=== PATIENT | male | born 1960 | race Caucasian/White ===

== ENCOUNTER 2023-09-29 15:11 | Outpatient (AMB) | payer BC, SELFPAY ==
[2023-09-29 15:12] VITALS: BP 162/98; PULSE 90; O2SAT 95; BMI 36.3
--- NOTE | 2023-09-29 15:12 | MHC.PC.OV ---
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 He reports he does not have any significant past medical history though has been having some trouble with his blood pressure. Today in office blood pressure is elevated. He does report a dentist visits his blood pressure has been noted to be elevated. He otherwise is asymptomatic without any vision issues, headaches, chest discomfort ect.. 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 1. Little interest or pleasure in doing things: not at all 2. Feeling down, depressed, or hopeless: not at all 3. Trouble falling or staying asleep, or sleeping too much: not at all 4. Feeling tired or having little energy: not at all 5. Poor appetite or overeating: not at all 6. Feeling bad about yourself - or that you are a failure or have let yourself or your family down: not at all 7. Trouble concentrating on things, such as reading the newspaper or watching television: not at all 8. Moving or speaking so slowly that other people could have noticed. Or the opposite - being so fidgety or restless that you have been moving around a lot more than usual: not at all 9. Thoughts that you would be better off or of hurting yourself in some way: not at all Total score: 0 Depression Screening Interpretation: Negative Depression Screening Done: Yes 23140 - PHQ-9 Billing: Yes Source: Developed by Drs. Con Shearer, Haley Ortiz, Ciro Manzo and colleagues, with an educational татьяна from [employer]. Thrive Questionnaire Date Thrive assessed: 09/29/23 I am a: Patient What is your living situation today?: I have a steady place to live Within the past 12 months, did the food you bought not last and you didn't have the money to get more?: Never true Within the past 12 months, did you worry whether your food would run out before you got money to buy more?: Never true Do you have trouble paying for medicines?: No Do you have trouble getting transportation to medical appointments?: No Do you have trouble paying your heating and electricity bill?: No Do you have trouble taking care of your child, family member or friend?: No Do you have trouble with day-to-day activities such as bathing, preparing meals, shopping, managing finances, etc.?: No Are you currently unemployed and looking for a job?: No Are you interested in more education?: No Please select the resources that you would like help with: None Currently or been in a relationship where the following occur: no concerns reported THRIVE Score: 0 AUDIT C Alcohol Use Questionnaire (AUDIT-C) 1. How often do you have a drink containing alcohol?: 2-4 times a month 2. How many drinks containing alcohol do you have on a typical day when you are drinking?: 1 or 2 3. How often do you have six or more drinks on one occasion?: Never Total Score: 2 RUTH ANN-7 AMB Questionnaire RUTH ANN-7 Date RUTH ANN - 7 assessed: 09/29/23 Feeling nervous, anxious, or on edge: 0 = Not at all Not being able to stop or control worryin = Not at all Worrying too much about different things: 0 = Not at all Trouble relaxin = Not at all Being so restless that it is hard to sit still: 0 = Not at all Becoming easily annoyed or irritable: 0 = Not at all Feeling afraid as if something awful might happen: 0 = Not at all Total RUTH ANN-7 score (0-4 normal; 5-9 mild; 10-14 moderate; 15-21 severe): 0 Source: Developed by Drs. Con Shearer, Haley Ortiz, Ciro Manzo and colleagues, with an educational татьяна from [employer]. RUTH ANN-7 Assessment Billing RUTH ANN-7 Assessment Tool: RUTH ANN-7 Assessment 98082 Review of Systems Const Denies headache(s) Eyes Denies loss of vision ENT Denies vertigo, Denies dizziness, Denies headache(s) and Denies sore throat Card Denies chest pain, Denies leg edema and Denies lightheadedness Resp Denies cough, Denies hemoptysis and Denies wheezing GI Denies abdominal pain, Denies melena, Denies constipation, Denies diarrhea and Denies vomiting Denies dysuria, Denies urinary frequency and Denies urinary urgency Musc Denies arthralgias, Denies joint swelling, Denies numbness and Denies tingling Neuro Denies Abnormal speech present, Denies behavioral changes, Denies vertigo, Denies dizziness, Denies headache(s), Denies loss of vision, Denies memory loss, Denies numbness and Denies tingling Psych Denies anxiety, Denies behavioral changes, Denies depression, Denies memory loss and Denies panic attacks Everett/Lymph Denies easy bleeding and Denies easy bruising Aller/Immun Denies wheezing Physical exam (Primary Care) Vital Signs: Last Vital Signs Pulse 90 09/29/23 15:12 BP 162/98 H 09/29/23 15:12 Pulse Ox 95 09/29/23 15:12 Oxygen Delivery Method Room Air 09/29/23 15:12 BMI result Body Mass Index 36.3 Tobacco/Smoking Status: Tobacco use Status Tobacco use date assessed 09/29/23 09/29/23 15:19 Patient Tobacco Use Status Never used Tobacco 09/29/23 15:28 PHQ-9: PHQ-9 Score PHQ-9: Total score 0 09/29/23 15:31 Depression Screening Interpretation: Negative Thrive Assessment: Date of Thrive Assessment Date Thrive assessed 09/29/23 09/29/23 15:19 Currently or been in a relationship where the following occur: no concerns reported Const General: healthy appearing, no acute distress, alert and awake Nutritional Appearance: well nourished Orientation/consciousness: oriented to person, oriented to place and oriented to time HENMT Ears: TM's normal bilaterally General nose exam: Normal nasal mucous membranes and turbinates present Eyes Conjunctivae: conjunctivae normal Sclerae: sclerae normal Pupils: Equal, round and reactive pupils present Neck Neck: Yes no lymphadenopathy and Yes no JVD Thyroid: Thyroid normal Carotids: no bruits Resp Effort & Inspection: normal respiratory effort and not tachypneic Auscultation: no crackles, no rales, no rhonchi and no wheezes Cardio Rate: regular rate Rhythm: regular rhythm Heart sounds: no murmurs and normal S1 and S2 GI Palpation (GI): Soft to palpation, nontender, no hepatomegaly and no splenomegaly Auscultation: normal bowel sounds Skin General skin exam: no rashes or lesions noted and dry skin Neuro General: oriented to person, oriented to place and oriented to time Cranial nerves: Yes Equal, round and reactive pupils present Speech: No Abnormal speech present Gait exam (Neuro): Normal gait present Motor exam (neuro): no tremor noted Extrem Right upper extremity: full ROM Left upper extremity: full ROM Right lower extremity: full ROM; no edema Left lower extremity: full ROM; no edema Psych Mental Status: mental status grossly normal Speech and movement: Normal speech and movement present Affect: normal affect Attitude: cooperative Thought process: Normal thought process present Assessment and Plan Assessment & Plan (1) Elevated blood pressure reading: Code(s): R03.0 - Elevated blood-pressure reading, without diagnosis of hypertension Plan: Noted elevated blood pressure reading today in office. Has been elevated at dentist appointments. Will commence blood pressure monitoring over the next 3-4 weeks. If consistently above 140/90 will consider starting lisinopril (2) Borderline high cholesterol: Code(s): E78.9 - Disorder of lipoprotein metabolism, unspecified Plan: Will check a fasting lipid panel (3) Screening for diabetes mellitus (DM): Code(s): Z13.1 - Encounter for screening for diabetes mellitus (4) Colon cancer screening: Code(s): Z12.11 - Encounter for screening for malignant neoplasm of colon Plan: Willing to do colonoscopy Orders: Orders Lipid Panel 09/29/23 E78.9 - Disorder of lipoprotein metabolism, unspecified Prostate Specific Antigen Scr 09/29/23 Z12.5 - Encounter for screening for malignant neoplasm of prostate Comprehensive [place]. Panel Fast 09/29/23 Z13.1 - Encounter for screening for diabetes mellitus Complete Blood Count no Diff 09/29/23 R03.0 - Elevated blood-pressure reading, without diagnosis of hypertension Referrals Gastroenterology Referral Z12.11 - Encounter for screening for malignant neoplasm of colon Coding Level of Care Code New Pt Level 4 (03304) Diagnoses Elevated blood pressure reading R03.0 Borderline high cholesterol E78.9 Screening for diabetes mellitus (DM) Z13.1 Colon cancer screening Z12.11 Additional Codes RUTH ANN-7 Assessment Billing - RUTH ANN-7 Assessment Tool: RUTH ANN-7 Assessment [id number] ([id number])
== END 2023-09-29 15:43 | disposition home or self-care (01) ==
PROVIDERS: Visit Provider Physician Assistant
DX: R03.0 Elevated blood-pressure reading, without diagnosis of hypertension (principal); E78.9 Disorder of lipoprotein metabolism, unspecified
CPT/HCPCS: 99204

== ENCOUNTER 2023-10-05 06:11 | Outpatient (REF) | payer BC, SELFPAY ==
[2023-10-05 07:50] LABS: Hematocrit 43.3 % (42.0-52.0); Hemoglobin 15.2 g/dl (14.0-18.0); Mean Corpuscular HGB Conc 35.1 g/dl (31.0-36.0); Mean Corpuscular Hemoglobin 31.3 pg (27.0-33.0); Mean Corpuscular Volume 89.1 fL (80.0-98.0); Mean Platelet Volume 10.8 fL (9.4-12.4); Platelet Count 184 X10*3/uL (160-400); Red Blood Count 4.86 X10*6/uL (4.60-5.80); Red Cell Distribution Width 12.5 % (11.0-16.0); White Blood Count 5.5 X10*3/uL (4.8-10.8)
[2023-10-05 08:16] LABS: Alanine Aminotransferase 44 U/L (0-40); Albumin Level 4.3 g/dL (3.5-5.0); Alkaline Phosphatase 70 U/L (39-117); Anion Gap 11 (12-20); Aspartate Amino Transferase 28 U/L (5-37); Bilirubin Total 0.5 mg/dL (0.0-1.0); Blood Urea Nitrogen 21 mg/dL (9-16); Calcium 9.7 mg/dL (8.4-10.2); Carbon Dioxide 28 mmol/L (22-29); Chloride 107 mmol/L (96-108); Cholesterol 198 mg/dL (<200); Estimated Glomerular Filt Rate > 60; Glucose Fasting 103 mg/dL (60-99); HDL Cholesterol 44 mg/dL (>40); LDL Cholesterol Calculated 113 mg/dL (<100); Potassium 4.5 mmol/L (3.3-5.1); Sodium 141 mmol/L (135-145); Total Protein 7.2 g/dL (6.5-8.0); Triglycerides 207 mg/dL (<150)
[2023-10-05 08:26] LABS: Prostate Specific Antigen Scr 0.96 ng/mL (<0.05-4.0)
== END 2023-10-05 06:12 | disposition home or self-care (01) ==
LOC: HO.LAB 06:11
PROVIDERS: PCP Physician Assistant; Visit Provider Physician Assistant
DX: R03.0 Elevated blood-pressure reading, without diagnosis of hypertension (principal); E78.9 Disorder of lipoprotein metabolism, unspecified; Z12.5 Encounter for screening for malignant neoplasm of prostate; Z13.1 Encounter for screening for diabetes mellitus
CPT/HCPCS: 36415; 80053; 80061; 84153; 85027

== ENCOUNTER 2023-11-02 09:36 | Outpatient (AMB) | payer BC, SELFPAY ==
[2023-11-02 09:49] VITALS: BP 160/96; PULSE 80; O2SAT 96; BMI 35.7
--- NOTE | 2023-11-02 09:49 | MHC.PC.OV ---
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 At last visit we noticed his elevated blood pressure was advised to do home blood pressure monitoring and work on weight reduction low-sodium diet. Unfortunately blood pressure remains elevated today in office. He is asymptomatic. He has been taking home readings which do appears somewhat elevated 140s to 150 systolic. Has been trying to be more physically active and following a low-sodium diet. Does have a family history of high blood pressure. 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 Con Shearer, Haley Ortiz, Ciro Manzo and colleagues, with an educational татьяна from [employer] Review of Systems Const Denies headache(s) Eyes Denies loss of vision ENT Denies vertigo, Denies dizziness, Denies headache(s) and Denies sore throat Card Denies chest pain, Denies leg edema and Denies lightheadedness Resp Denies cough, Denies hemoptysis and Denies wheezing GI Denies abdominal pain, Denies melena, Denies constipation, Denies diarrhea and Denies vomiting Denies dysuria, Denies urinary frequency and Denies urinary urgency Musc Denies arthralgias, Denies joint swelling, Denies numbness and Denies tingling Neuro Denies Abnormal speech present, Denies behavioral changes, Denies vertigo, Denies dizziness, Denies headache(s), Denies loss of vision, Denies memory loss, Denies numbness and Denies tingling Psych Denies anxiety, Denies behavioral changes, Denies depression, Denies memory loss and Denies panic attacks Everett/Lymph Denies easy bleeding and Denies easy bruising Aller/Immun Denies wheezing Physical exam (Primary Care) Vital Signs: Last Vital Signs Pulse 80 11/02/23 09:49 BP 160/96 H 11/02/23 09:49 Pulse Ox 96 11/02/23 09:49 Oxygen Delivery Method Room Air 11/02/23 09:49 BMI result Body Mass Index 35.7 Tobacco/Smoking Status: Tobacco use Status Tobacco use date assessed 09/29/23 11/02/23 09:49 Patient Tobacco Use Status Never used Tobacco 11/02/23 09:49 e-Cigarette/Vaping Use Never Used 11/02/23 09:57 Thrive Assessment: Date of Thrive Assessment Date Thrive assessed 09/29/23 11/02/23 09:49 Const General: healthy appearing, no acute distress, alert and awake Nutritional Appearance: well nourished Orientation/consciousness: oriented to person, oriented to place and oriented to time HENMT Ears: TM's normal bilaterally General nose exam: Normal nasal mucous membranes and turbinates present Eyes Conjunctivae: conjunctivae normal Sclerae: sclerae normal Pupils: Equal, round and reactive pupils present Neck Neck: Yes no lymphadenopathy and Yes no JVD Thyroid: Thyroid normal Carotids: no bruits Resp Effort & Inspection: normal respiratory effort and not tachypneic Auscultation: no crackles, no rales, no rhonchi and no wheezes Cardio Rate: regular rate Rhythm: regular rhythm Heart sounds: no murmurs and normal S1 and S2 GI Palpation (GI): Soft to palpation, nontender, no hepatomegaly and no splenomegaly Auscultation: normal bowel sounds Skin General skin exam: no rashes or lesions noted and dry skin Neuro General: oriented to person, oriented to place and oriented to time Cranial nerves: Yes Equal, round and reactive pupils present Speech: No Abnormal speech present Gait exam (Neuro): Normal gait present Motor exam (neuro): no tremor noted Extrem Right upper extremity: full ROM Left upper extremity: full ROM Right lower extremity: full ROM; no edema Left lower extremity: full ROM; no edema Psych Mental Status: mental status grossly normal Speech and movement: Normal speech and movement present Affect: normal affect Attitude: cooperative Thought process: Normal thought process present Assessment and Plan Assessment & Plan (1) HTN (hypertension): Code(s): I10 - Essential (primary) hypertension Qualifiers: Hypertension type: primary hypertension Qualified Code(s): I10 - Essential (primary) hypertension Plan: Patient's blood pressure still remains elevated. Home blood pressure readings also elevated. Patient willing to start low-dose lisinopril and continue monitoring blood pressure at home. Fortunately he is asymptomatic without any chest discomfort, dizziness or syncopal episodes. Goal blood pressures to be below 140/90 (2) Hypertriglyceridemia: Code(s): E78.1 - Pure hyperglyceridemia Plan: Patient's most recent lipid panel showing slightly elevated triglycerides. He will implement dietary modifications. (3) Impaired glucose regulation: Code(s): R73.09 - Other abnormal glucose Plan: Most recent fasting blood sugar slightly elevated at 103. Will continue lifestyle and dietary modifications Orders: Orders Comprehensive Met. Panel 11/02/23 I10 - Essential (primary) hypertension Medications: New lisinopril 5 mg PO DAILY 30 tabs 1RF 30 days I10 - Essential (primary) hypertension Coding Level of Care Code Est Pt Level 4 (07279) Diagnoses Primary hypertension I10 Hypertension type: primary hypertension Hypertriglyceridemia E78.1 Impaired glucose regulation R73.09
== END 2023-11-02 10:22 | disposition home or self-care (01) ==
PROVIDERS: Visit Provider Physician Assistant
DX: I10 Essential (primary) hypertension (principal); E78.1 Pure hyperglyceridemia; R73.09 Other abnormal glucose
CPT/HCPCS: 99214

== ENCOUNTER 2023-12-07 06:03 | Outpatient (REF) | payer BC, SELFPAY ==
[2023-12-07 07:44] LABS: Alanine Aminotransferase 38 U/L (0-40); Albumin Level 4.3 g/dL (3.5-5.0); Alkaline Phosphatase 71 U/L (39-117); Anion Gap 12 (12-20); Aspartate Amino Transferase 26 U/L (5-37); Bilirubin Total 0.5 mg/dL (0.0-1.0); Blood Urea Nitrogen 20 mg/dL (9-16); Carbon Dioxide 28 mmol/L (22-29); Chloride 106 mmol/L (96-108); Estimated Glomerular Filt Rate > 60; Glucose Random 112 mg/dL (60-115); Potassium 4.5 mmol/L (3.3-5.1); Sodium 141 mmol/L (135-145); Total Protein 7.3 g/dL (6.5-8.0)
== END 2023-12-07 06:04 | disposition home or self-care (01) ==
LOC: HO.LAB 06:03
PROVIDERS: PCP Physician Assistant; Visit Provider Physician Assistant
DX: I10 Essential (primary) hypertension (principal)
CPT/HCPCS: 36415; 80053

== ENCOUNTER 2023-12-08 09:50 | Outpatient (AMB) | payer BC, SELFPAY ==
[2023-12-08 09:57] VITALS: BP 164/80; PULSE 88; O2SAT 98; BMI 36.5
--- NOTE | 2023-12-08 09:57 | MHC.PC.OV ---
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 Today we are discussing his high blood pressure. WE DID START LISINOPRIL which caused patient side effect of frequent still in diarrhea that was intolerable. Transitioned to amlodipine 5 mg reports he has been feeling well. Unfortunately blood pressure remains elevated today in office. He is asymptomatic. He has been taking home readings which do appears somewhat elevated 140s to 150 systolic at home. Has been trying to be more physically active and following a low-sodium diet. Does have a family history of high blood pressure. 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 Con Shearer, Haley Ortiz, Ciro Manzo and colleagues, with an educational татьяна from [employer]. Review of Systems Const Denies headache(s) Eyes Denies loss of vision ENT Denies vertigo, Denies dizziness, Denies headache(s) and Denies sore throat Card Denies chest pain, Denies leg edema and Denies lightheadedness Resp Denies cough, Denies hemoptysis and Denies wheezing GI Denies abdominal pain, Denies melena, Denies constipation, Denies diarrhea and Denies vomiting Denies dysuria, Denies urinary frequency and Denies urinary urgency Musc Denies arthralgias, Denies joint swelling, Denies numbness and Denies tingling Neuro Denies Abnormal speech present, Denies behavioral changes, Denies vertigo, Denies dizziness, Denies headache(s), Denies loss of vision, Denies memory loss, Denies numbness and Denies tingling Psych Denies anxiety, Denies behavioral changes, Denies depression, Denies memory loss and Denies panic attacks Everett/Lymph Denies easy bleeding and Denies easy bruising Aller/Immun Denies wheezing Physical exam (Primary Care) Vital Signs: Last Vital Signs Pulse 88 12/08/23 09:57 BP 142/70 H 12/08/23 10:13 Pulse Ox 98 12/08/23 09:57 Oxygen Delivery Method Room Air 12/08/23 09:57 BMI result Body Mass Index 36.5 Tobacco/Smoking Status: Tobacco use Status Tobacco use date assessed 09/29/23 12/08/23 09:59 Patient Tobacco Use Status Never used Tobacco 12/08/23 09:59 e-Cigarette/Vaping Use Never Used 12/08/23 09:59 Thrive Assessment: Date of Thrive Assessment Date Thrive assessed 09/29/23 12/08/23 09:59 Const General: healthy appearing, no acute distress, alert and awake Nutritional Appearance: well nourished Orientation/consciousness: oriented to person, oriented to place and oriented to time HENMT Ears: TM's normal bilaterally General nose exam: Normal nasal mucous membranes and turbinates present Eyes Conjunctivae: conjunctivae normal Sclerae: sclerae normal Pupils: Equal, round and reactive pupils present Neck Neck: Yes no lymphadenopathy and Yes no JVD Thyroid: Thyroid normal Carotids: no bruits Resp Effort & Inspection: normal respiratory effort and not tachypneic Auscultation: no crackles, no rales, no rhonchi and no wheezes Cardio Rate: regular rate Rhythm: regular rhythm Heart sounds: no murmurs and normal S1 and S2 GI Palpation (GI): Soft to palpation, nontender, no hepatomegaly and no splenomegaly Auscultation: normal bowel sounds Skin General skin exam: no rashes or lesions noted and dry skin Neuro General: oriented to person, oriented to place and oriented to time Cranial nerves: Yes Equal, round and reactive pupils present Speech: No Abnormal speech present Gait exam (Neuro): Normal gait present Motor exam (neuro): no tremor noted Extrem Right upper extremity: full ROM Left upper extremity: full ROM Right lower extremity: full ROM; no edema Left lower extremity: full ROM; no edema Psych Mental Status: mental status grossly normal Speech and movement: Normal speech and movement present Affect: normal affect Attitude: cooperative Thought process: Normal thought process present Assessment and Plan Assessment & Plan (1) HTN (hypertension): Code(s): I10 - Essential (primary) hypertension Qualifiers: Hypertension type: primary hypertension Qualified Code(s): I10 - Essential (primary) hypertension Plan: Patient's blood pressure remains elevated even with the use of amlodipine 5 mg. Will increase his dose to 10 mg for better blood pressure control. Will consider adding on hydrochlorothiazide if blood pressure remains elevated. He is getting very high readings at home that do not seem to be believable. He will try to get a new blood pressure cuff. Fortunately patient is fairly asymptomatic denying any chest pain, shortness of breath, headaches or vision issues. Goal blood pressure is to be below 140/90 Medications: New amlodipine 10 mg PO DAILY 30 tabs 1RF 30 days I10 - Essential (primary) hypertension Discontinued amlodipine Discontinued Reason: Doctor's Order 5 mg PO DAILY 30 days 30 tabs 1RF I10 - Essential (primary) hypertension Coding Level of Care Code Est Pt Level 3 (92657) Diagnoses Primary hypertension I10 Hypertension type: primary hypertension
[2023-12-08 10:13] VITALS: BP 142/70
== END 2023-12-08 10:20 | disposition home or self-care (01) ==
PROVIDERS: PCP Physician Assistant; Visit Provider Physician Assistant
DX: I10 Essential (primary) hypertension (principal)
CPT/HCPCS: 99213

== ENCOUNTER 2024-01-17 09:23 | Outpatient (AMB) | payer BC, SELFPAY ==
--- NOTE | 2024-01-17 09:24 | A.OFFPC_ITS ---
Vital Signs 01/17/24 09:25 Height 5 ft 5.5 in Weight 224 lb BMI 36.7 BP 152/70 H Blood Pressure Location Lt brachial Position Sitting Pulse 86 Pulse Source Pulse Oximeter Pulse Oximetry (%) 97 Oxygen Delivery Method Room Air Intake Visit Reasons: 4 Week F/U Loaf Counter Required: No Accompanied by: Self / Same As Patient Allergies lisinopril Adverse Reaction (Intermediate, Verified 01/17/24 09:39) Frequent stool Medication List - Last Reconciled 01/17/24 by Levi Celeste PA-C amlodipine 10 mg PO DAILY 30 days Tobacco use date assessed: 09/29/23 Dental Screening Dental Screen Date: 01/17/24 Did you have a dental visit in the last 12 months?: Yes Did you have a dental problem in the last 6 months where you did not have access to dental care?: No Was dental information given to patient?: Patient has dentist HPI 4 Week F/U HPI Details patient is a 63-year-old male here today for 4 week follow-up visit. Today we are discussing his high blood pressure. At last visit be started amlodipine 10 mg. Unfortunately today in office blood pressure still elevated. Patient does bring in home readings which do show elevated systolic readings [id number]. Fortunately patient is asymptomatic without any headache, chest pain, dizziness ect.. Has been trying to be more physically active and following a low-sodium diet. Does have a family history of high blood pressure. 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 Con Shearer, Haley Ortiz, Ciro Manzo and colleagues, with an educational татьяна from [employer]. Review of Systems Const Denies headache(s) Eyes Denies loss of vision ENT Denies vertigo, Denies dizziness, Denies headache(s) and Denies sore throat Card Denies chest pain, Denies leg edema and Denies lightheadedness Resp Denies cough, Denies hemoptysis and Denies wheezing GI Denies abdominal pain, Denies melena, Denies constipation, Denies diarrhea and Denies vomiting Denies dysuria, Denies urinary frequency and Denies urinary urgency Musc Denies arthralgias, Denies joint swelling, Denies numbness and Denies tingling Neuro Denies Abnormal speech present, Denies behavioral changes, Denies vertigo, Denies dizziness, Denies headache(s), Denies loss of vision, Denies memory loss, Denies numbness and Denies tingling Psych Denies anxiety, Denies behavioral changes, Denies depression, Denies memory loss and Denies panic attacks [place]rett/Lymph Denies easy bleeding and Denies easy bruising Aller/Immun Denies wheezing Physical exam (Primary Care) Vital Signs: Last Vital Signs Pulse 86 01/17/24 09:25 BP 152/70 H 01/17/24 09:25 Pulse Ox 97 01/17/24 09:25 Oxygen Delivery Method Room Air 01/17/24 09:25 BMI result Body Mass Index 36.7 Tobacco/Smoking Status: Tobacco use Status Tobacco use date assessed 09/29/23 01/17/24 09:30 Patient Tobacco Use Status Never used Tobacco 01/17/24 09:30 e-Cigarette/Vaping Use Never Used 01/17/24 09:30 Thrive Assessment: Date of Thrive Assessment Date Thrive assessed 09/29/23 01/17/24 09:30 Const General: healthy appearing, no acute distress, alert and awake Nutritional Appearance: well nourished Orientation/consciousness: oriented to person, oriented to place and oriented to time HENMT Ears: TM's normal bilaterally General nose exam: Normal nasal mucous membranes and turbinates present Eyes Conjunctivae: conjunctivae normal Sclerae: sclerae normal Pupils: Equal, round and reactive pupils present Neck Neck: Yes no lymphadenopathy and Yes no JVD Thyroid: Thyroid normal Carotids: no bruits Resp Effort & Inspection: normal respiratory effort and not tachypneic Auscultation: no crackles, no rales, no rhonchi and no wheezes Cardio Rate: regular rate Rhythm: regular rhythm Heart sounds: no murmurs and normal S1 and S2 GI Palpation (GI): Soft to palpation, nontender, no hepatomegaly and no splenomegaly Auscultation: normal bowel sounds Skin General skin exam: no rashes or lesions noted and dry skin Neuro General: oriented to person, oriented to place and oriented to time Cranial nerves: Yes Equal, round and reactive pupils present Speech: No Abnormal speech present Gait exam (Neuro): Normal gait present Motor exam (neuro): no tremor noted Extrem Right upper extremity: full ROM Left upper extremity: full ROM Right lower extremity: full ROM; no edema Left lower extremity: full ROM; no edema Psych Mental Status: mental status grossly normal Speech and movement: Normal speech and movement present Affect: normal affect Attitude: cooperative Thought process: Normal thought process present Office Procedures Flu Questionnaire Does the patient have a severe egg allergy?: No Immunizations Fluarix Triv [id number] (PF) 45 mcg (15 mcg x 3)/0.5 mL IM syringe Performing Provider: Levi Celeste PA-C [place] [facility] [place] [facility] Documented (not given) by: ARRON Lopez on 01/17/24 09:31 Reason Not Given: Patient Refused Coding Level of Care Code Est Pt Level 3 (36825) Diagnoses Primary hypertension I10 Hypertension type: primary hypertension Assessment & Plan Assessment & Plan (1) HTN (hypertension): Code(s): I10 - Essential (primary) hypertension Category: Medical Qualifiers: Hypertension type: primary hypertension Qualified Code(s): I10 - Essential (primary) hypertension Plan: Patient's blood pressure still remains uncontrolled. Continues on amlodipine 10 mg without any side effect. Will add on hydrochlorothiazide 12.5 mg daily for better blood pressure control. Advised to continue monitoring blood pressure follow a low-sodium diet. Will try to work on lifestyle and dietary modifications as well. Will have patient back in 4 weeks to evaluate blood pressure readings. Goal blood pressures to be below 140/90 Orders: Orders Influenza [id number] Immunization Today Z23 - Encounter for immunization Medications: New hydrochlorothiazide 12.5 mg PO DAILY 30 days 30 tabs 1RF I10 - Essential (primary) hypertension
[2024-01-17 09:25] VITALS: BP 152/70; PULSE 86; O2SAT 97; BMI 36.7
== END 2024-01-17 09:58 | disposition home or self-care (01) ==
PROVIDERS: PCP Physician Assistant; Visit Provider Physician Assistant
DX: Z23 Encounter for immunization (principal); I10 Essential (primary) hypertension

== ENCOUNTER → 2024-01-17 09:23 | Outpatient (BNVA) | payer BC, SELFPAY | PROVIDERS: PCP Physician Assistant; Visit Provider Physician Assistant | DX: I10 Essential (primary) hypertension (principal); Z79.899 Other long term (current) drug therapy; Z28.21 Immunization not carried out because of patient refusal | CPT/HCPCS: 90471 ==

== ENCOUNTER 2024-02-16 08:44 | Outpatient (AMB) | payer BC, SELFPAY ==
[2024-02-16 08:47] VITALS: BP 150/80; PULSE 78; O2SAT 98; BMI 37.5
--- NOTE | 2024-02-16 08:47 | MHC.PC.OV ---
Vital Signs 02/16/24 08:47 Height 5 ft 5 in Weight 225 lb 8 oz BMI 37.5 BP 150/80 H Blood Pressure Location Lt brachial Position Sitting Pulse 78 Pulse Source Pulse Oximeter Pulse Oximetry (%) 98 Oxygen Delivery Method Room Air Intake Visit Reasons: f/u HTN Intake Note: Patient is here to follow up on HTN. Pt decline flu shot today. 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 Today we are discussing his high blood pressure. Patient continues on amlodipine 10 and recently started hydrochlorothiazide 12.5. Unfortunately today in office blood pressure still elevated. Patient does bring in home readings which do show elevated systolic readings 150s to 160 systolic. Fortunately patient is asymptomatic without any headache, chest pain, dizziness ect.. Has been trying to be more physically active and following a low-sodium diet. Does have a family history of high blood pressure. PLAN: Plan will be to increase his hydrochlorothiazide to 25 mg and patient will implement low-sodium diet and being more physically active to reduce his weight. If blood pressure remains 150 systolic and above will consider echocardiogram to rule out any structural heart disease. 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 Con Shearer, Haley Ortiz, Ciro Manzo and colleagues, with an educational татьяна from [employer]. Review of Systems Const Denies headache(s) Eyes Denies loss of vision ENT Denies vertigo, Denies dizziness, Denies headache(s) and Denies sore throat Card Denies chest pain, Denies leg edema and Denies lightheadedness Resp Denies cough, Denies hemoptysis and Denies wheezing GI Denies abdominal pain, Denies melena, Denies constipation, Denies diarrhea and Denies vomiting Denies dysuria, Denies urinary frequency and Denies urinary urgency Musc Denies arthralgias, Denies joint swelling, Denies numbness and Denies tingling Neuro Denies Abnormal speech present, Denies behavioral changes, Denies vertigo, Denies dizziness, Denies headache(s), Denies loss of vision, Denies memory loss, Denies numbness and Denies tingling Psych Denies anxiety, Denies behavioral changes, Denies depression, Denies memory loss and Denies panic attacks [place]rett/Lymph Denies easy bleeding and Denies easy bruising Aller/Immun Denies wheezing Physical exam (Primary Care) Vital Signs: Last Vital Signs Pulse 78 02/16/24 08:47 BP 150/80 H 02/16/24 08:47 Pulse Ox 98 02/16/24 08:47 Oxygen Delivery Method Room Air 02/16/24 08:47 BMI result Body Mass Index 37.5 Tobacco/Smoking Status: Tobacco use Status Tobacco use date assessed 02/16/24 02/16/24 08:49 Patient Tobacco Use Status Never used Tobacco 02/16/24 08:49 e-Cigarette/Vaping Use Never Used 02/16/24 08:49 Thrive Assessment: Date of Thrive Assessment Date Thrive assessed 09/29/23 02/16/24 08:49 Const General: healthy appearing, no acute distress, alert and awake Nutritional Appearance: well nourished Orientation/consciousness: oriented to person, oriented to place and oriented to time HENMT Ears: TM's normal bilaterally General nose exam: Normal nasal mucous membranes and turbinates present Eyes Conjunctivae: conjunctivae normal Sclerae: sclerae normal Pupils: Equal, round and reactive pupils present Neck Neck: Yes no lymphadenopathy and Yes no JVD Thyroid: Thyroid normal Carotids: no bruits Resp Effort & Inspection: normal respiratory effort and not tachypneic Auscultation: no crackles, no rales, no rhonchi and no wheezes Cardio Rate: regular rate Rhythm: regular rhythm Heart sounds: no murmurs and normal S1 and S2 GI Palpation (GI): Soft to palpation, nontender, no hepatomegaly and no splenomegaly Auscultation: normal bowel sounds Skin General skin exam: no rashes or lesions noted and dry skin Neuro General: oriented to person, oriented to place and oriented to time Cranial nerves: Yes Equal, round and reactive pupils present Speech: No Abnormal speech present Gait exam (Neuro): Normal gait present Motor exam (neuro): no tremor noted Extrem Right upper extremity: full ROM Left upper extremity: full ROM Right lower extremity: full ROM; no edema Left lower extremity: full ROM; no edema Psych Mental Status: mental status grossly normal Speech and movement: Normal speech and movement present Affect: normal affect Attitude: cooperative Thought process: Normal thought process present Coding Level of Care Code Est Pt Level 3 (09980) Diagnoses Primary hypertension I10 Hypertension type: primary hypertension Assessment & Plan Assessment & Plan (1) HTN (hypertension): Code(s): I10 - Essential (primary) hypertension Category: Medical Qualifiers: Hypertension type: primary hypertension Qualified Code(s): I10 - Essential (primary) hypertension Plan: Patient's blood pressure remains elevated. Has been monitoring blood pressure quite regularly at home and still gets 150s to 160 systolic. Fortunately patient is asymptomatic without any headache, blurred vision, chest discomforts or heart palpitations. For now will increase his hydrochlorothiazide to 25 mg to see if this helps his blood pressure. Will consider echocardiogram to evaluate for structural heart disease Medications: New hydrochlorothiazide 25 mg PO DAILY 30 tabs 3RF 30 days I10 - Essential (primary) hypertension Discontinued hydrochlorothiazide Discontinued Reason: Doctor's Order 12.5 mg PO DAILY 30 days 30 tabs 1RF I10 - Essential (primary) hypertension
== END 2024-02-16 09:26 | disposition home or self-care (01) ==
LOC: HO.HMCH 08:45
PROVIDERS: PCP Physician Assistant; Visit Provider Physician Assistant
DX: I10 Essential (primary) hypertension (principal)

== ENCOUNTER → 2024-02-16 08:44 | Outpatient (BNVA) | payer BC, SELFPAY | PROVIDERS: PCP Physician Assistant; Visit Provider Physician Assistant ==

== ENCOUNTER 2024-04-05 09:12 | Outpatient (AMB) | payer BC, SELFPAY ==
--- OUTSIDE RECORDS SUMMARY | 2024-04-05 09:19 | XMS_ITS | Patient Health Record ---
Author Organization [facility] Address [address] [place] [address] Care Team Providers Care Project Management Advisor Name Role Phone Tahmina Streeter Unavailable [phone] Allergies No Known Allergies Reason For Referral No Information Medications Medication SIG (Take, Route, Frequency, Duration) Notes Start Date End Date Status Ciclopirox Olamine 0.77 % 1 application Externally Twice a day for 30 days Active Amoxicillin temp Active Social History Tobacco Use: Social History Observation Description Date Details (start date - stop date) Never Smoker NA - NA Tobacco Use/Smoking Question Answer Notes Are you a: nonsmoker Additional Findings: Tobacco Non-User Current no n-smoker Alcohol Screen Question Answer Notes Did you have a drink containing alcohol in the p ast year? Yes Points 0 Interpretation Negative Tobacco use other than smoking: Question Answer Notes Are you an other tobacco user? No Vital Signs Height 5 ft 8 in in 08/08/2023 Weight 200 lbs 08/08/2023 BMI 30.41 kg/m2 08/08/2023 Encounters Encounter Location Date Provider Diagnosis [address] [address] 08/08/2023 Tahmina Streeter Tinea unguium B35.1 ; Tinea pedis of both feet B35.3 ; Pain in right toe(s) M79.674 and Pain in left toe(s) M79.675 [facility] [address] [place] [address] 06/15/2023 Tahmina Streeter Assessments Encounter Date Diagnosis (ICD Code) Assessment Notes Treatment Notes Treatment Clinical Notes Section Notes 08/08/2023 Tinea unguium (ICD-10 - B35.1) 08/08/2023 Tinea pedis of both feet (ICD-10 - B35.3) 08/08/2023 Pain in right toe(s) (ICD-10 - M79.674) 08/08/2023 Pain in left toe(s) (ICD-10 - M79.675) Plan Of Treatment No Information Insurance Providers Payer Name Payer Address Payer Phone Subscriber Number Group Number Insured Name Patient Relationship to Insured Coverage Start Date Coverage End Date [facility] Others [address] [place] [address] [phone] [id number] Bob Connell Self - patient is the insured Medical (General) History Surgical History Surgery Date(Month/Year) knee surgery 09/25/1977 knee surgery 09/25/1978 cartilage removal 09/25/1977 cartilage removal 09/25/1978 tooth removed
--- OUTSIDE RECORDS SUMMARY | 2024-04-05 09:19 | XMS_ITS ---
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 Generated for Jaysoni william/Finesse/eTransmitting on:?04/05/2024 09:18 AM EST
--- OUTSIDE RECORDS SUMMARY | 2024-04-05 09:19 | XMS_ITS ---
[facility] Maria Elena castellon [place] Address [address] [facility] [place] [address] Care Team Providers Care Digital Media Planner Name Role Phone Tahmina Streeter Unavailable [phone] Allergies No Known Allergies REASON FOR VISIT Painful nail(s) aggrevated by shoes causing difficulty standing/walking, Skin Problem Medications Medication SIG (Take, Route, Frequency, Duration) [...] 08/08/2023 Encounters Encounter Location Date Provider [facility] [place] [address] 08/08/2023 Tahmina Streeter Tinea unguium B35.1 ; Tinea pedis of both feet B35.3 ; Pain in right toe(s) M79.674 and Pain in left toe(s) M79.675 Assessments Encounter Date Diagnosis (ICD Code) Assessment Notes Treatment Notes Treatment Clinical Notes Section Notes 08/08/2023 Tinea unguium (ICD-10 - B35.1) 08/08/2023 Tinea pedis of both feet (ICD-10 - B35.3) 08/08/2023 Pain in right toe(s) (ICD-10 - M79.674) 08/08/2023 Pain in left toe(s) (ICD-10 - M79.675) Plan Of Treatment Medication Medication Name Sig Start Date Stop Date Notes Ciclopirox Olamine 0.77 % 1 application Externally Twice a day for 30 days Next Appt Details Follow Up: prn, Reason: Procedure Notes * Category Sub-Category Detail Notes Debride Nails 1-5 Procedure: Nail debrideme nt performed extensively to reduce/remove overall nail length, girth, thickness, subungual debris, and necrotic tissue, by manual and electrical means through the use of a nail nipper and/or dremel, to more viable healthy nail plate or bed tissue 1-5. Silver nitrate used for any petechial bleeding as necessary. Patient chooses, no pharmaceutical tx (47133) Progress Notes * Bob CONNELLDOB:1960 (63 yo M)Acc No.[id number]:08/08/2023 Progress Notes Patient:?Bob Connell Provider:?Tahmina Streeter DPM :1960???Age:63 Y???Sex:Male Vidal e:08/08/2023 Address:[address] [place], [place] [id number] Subjective: * Chief Complaints: * ???Painful nail(s) aggrevate d by shoes causing difficulty standing/walkingSkin Problem * HPI: ???Painful Nails:?Pt States Last PCP Visit:?Date:?04/19/2023 ???Skin problems:?Nature:?scaling , redness.?Location:?B/L .?Duration:?several days.?Course:?worse.? * ROS:?General/Constitutional:?Nausea?denies.?Vomiting?denies.?Hunger Thirst?denies.?Loss appetite?admits.?Chills?denies.?Fatigue?denies.?Fever?denies.?Night Sweats?denies.?Unexplained weight loss?admits.?Unexplained weight gain?denies.?HEENTM:?Dentures?denies.?Dizziness?denies.?Glasses/contacts?denies.?Retinopathy?de nies.?Blurred/double vision?denies.?TMJ?denies.?Discharge/drainage?denies.?Implants?denies.?Sore throat?denies.?Dental implants?denies.?Hard of hearing ?denies.?Difficulty chewing/swallowing/speaking?denies.?Nose bleeds?denies.?Sore mouth?denies.?Respiratory:?On Oxygen?denies.?Pneumonia/pleurisy?denies.?Bronchitis?denies.?Emphysema?denies.?C oughing?denies.?Cough blood?denies.?Shortness of breath?denies.?Wheezing?denies.?Cardiovascular:?Pacemaker?denies.?MVP?denies.?WPW?denies.?CHF?denies.?Heart attack?denies.?Septal defect?denies.?Rapid beat?denies.?Chest pain ?denies.?Atrial Fib.?denies.?Murmur/Palpitations?denies.?Gastrointestinal:?Hemorrhoids?denies.?Stomach/Abdominal pain?denies.?Dark blood stool?denies.?Irritable bowel ?denies.?Constipation?denies.?Diarrhea?denies.?Hematology:?Swelling?denies.?Clots?denies.?Varicose Veins?denies.?Bruising?denies.?Bleeding problem?denies.?Genitourinary:?Blood urine?denies.?Frequent/Painfu/urination/bladder control?denies.?Kidney stones?denies.?Infection (UTI)?denies.?Nephropathy?denies.?sex trans dis (STD)?denies.?Prostate?denies.?Musculoskeletal:?Hammertoes?denies.?Bunions?denies.?Back Pain?denies.?Muscle Cramps/ Resting?denies.?Muscle cramps / walking?denies.?Generalized aches and pains?denies.?Weakness?denies.?Integ.:?Rouse?denies.?Scars?denies.?Corns/calluses?denies.?Ingrown nails?denies.?Painful nails?denies.?Open Sores?denies.?Rashes?denies.?Neurologic:?Difficulty sleeping?denies.?Brain disorder?denies.?Numbness?denies.?Balance trouble?denies.?Confusion?denies.?Fainting/blackouts?denies.?Tingling?denies.?Tr emors?denies.? * Medical History:? * Surgical History:?knee surge ry 09/25/1977knee surgery 09/25/1978cartilage removal 09/25/1977cartilage removal 09/25/1978tooth removed * Hospitalization/Major Diagno stic Procedure:?No Hospitalization History. * Family History:?Mother: diab etes, arthritis, stroke, cancer, foot problems, heart attack, high blood pressure, defects, poor circulation, kidney/liver disease.?Father: diabetes, arthritis, stroke, cancer, foot problems, heart attack, high blood pressure, defects, poor circulation.? * Social History:?Tobacco Use:?Tobacco Use/Smoking?Are you a:?nonsmoker ?Additional Findings: Tobacco Non-User?Current non-smoker ?Tobacco use other than smoking?Are you an other tobacco user??No ???Drugs/Alcohol:?Drugs?Have you used drugs other than those for medical reasons in the past 12 months??No ?Alcohol Screen?Did you have a drink containing alcohol in the past year??Yes ?Points?0 ?Interpretation?Negative ???Miscellaneous:?Caffeine: yes. ?no Children. ?Exercise: golf, bike riding, rowing. ?Marital status: . 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 * Medications:?TakingAmoxicill in , Notes: tempMedication List reviewed and reconciled with the patientTaking Amoxicillin , Notes: tempMedication List reviewed and reconciled with the patient * Allergies:?N.K.D.A.yes[Aller gies Verified] Objective: * Vitals:?Ht: 5 ft 8 in, Wt:20 0, BMI:30.41, Shoe size: 10, Ht-cm: 172.72 cm, Wt- k.72 kg. * Examination: ???Nails: ?NAILS are:?Elongated, overgrown, dystrophic, lytic, greater than 3mm thick, discolored and friable with crumbly malodorous subungual debris, with pain on palpation, 1-5 B/L.?General Examination: ?GENERAL APPEARANCE:?Reveals a pleasant, alert, well-nourished, well- developed, well hydrated individual, who demonstrates proper attention to hygiene/body habitus, and is in no acute distress, Pt serves as own?historian for office visit today.?ORIENTED:?person, place, and time.?Neurological: ?SENSORY:?Neurological exam reveals intact sensorium, pain sensation normal, vibration sensation intact, pinprick sensation is normal in the lower extremities, Pt denies, anesthesia, burning, paresthesia, tingling, B/L.?DEEP TENDON REFLEXES:?Achilles, 2/4, B/L.?Vascular: ?DP PULSES:?3/4, B/L.?PT PULSES:?3/4, B/L.?CAPILLARY FILL TIME:?immediate, all digits, B/L.?SKIN TEMPERTURE GRADIENT OF THE LOWER EXTERMITIES:?warm to cool, proximal to distal, B/L.?HAIR GROWTH/TEXTURE/ELASTICITY/TURGOR:?normal, B/L.?PIGMENTATION:?normal, B/L.?EDEMA:?absent, B/L.?Dermatologic: ?SKIN FINDINGS:?Skin shows sign(s) of, erythema, scaling, in a moccasin fashion, no fissure(s) present, B/L.?Orthopedic: ?MUSCLE STRENGTH:?5/5 all groups in a symmetrical fashion , B/L.? Assessment: * Assessment: 1.?Tinea unguium - B35.1?2.? Tinea pedis of both feet - B35.3 (Primary), Acute problem, Uncomplicated (3),Rx drug management (4)?3.?Pain in right toe(s) - M79.674?4.?Pain in left toe(s) - M79.675? Plan: * Treatment: * Procedures:?Debride Nails 1-5:?Procedure:?Nail debridement performed extensively to reduce/remove overall nail length, girth, thickness, subungual debris, and necrotic tissue, by manual and electrical means through the use of a nail nipper and/or dremel, to more viable healthy nail plate or bed tissue 1-5. Silver nitrate used for any petechial bleeding as necessary. Patient chooses, no pharmaceutical tx (95418).? * Procedure Codes:?63841 ROSENDO SMILEY, 1-5, Modifiers: XS * Preventive Medicine:? ??Counseling:?Discussion:?-03: Office or other outpatient visit for the evaluation and management of a new patient, which required a medically appropriate history and/or examination and LOW level of DECISION MAKING for: 1 STABLE ACUTE UNCOMPLICATED PROBLEM, 2 OR MORE MINOR PROBLEMS, OR 1 STABLE CHRONIC PROBLEM, THAT POSE(S) A LOW RISK FOR MORBIDITY/MORTALITY. The visit on the day of the encounter encompassed interpreting the data and educating the patient as to the nature of their condition, treatment options available according to their individual PMH, meds, allergies, and overall health/living conditions, as well as any potential risks or complications that may occur from a failure to adhere to, and participate in, the recommended course of therapy. The discussion included a complete verbal, and/or written explanation of the examination results, any x-rays taken, the proposed diagnosis, and outline of the treatment plan. A schedule for future care needs was also explained. The patient verbalized an understanding of the instructions at this time and agreed to be an active participant in their treatment. If the patient should think of any questions or concerns after the visit, I have encouraged the patient to call the office.?Fungal Nail Counseling:?The patient was counseled on the diagnosis, potential etiologies (including, but not limited to, environmental factors, genetic, immune deficiency), and the multiple treatment options for Onychomycosis. We discussed the risks and benefits of each option from performing no treatment, to ultraviolet light shoe treatment, to laser nail treatment, to applying topical antifungals, to taking oral antifungal medication, to surgical removal of the involved nail(s) with or without performing a matricectomy, or any combination thereof. We discussed the advantages and disadvantages of each of possible treatment and importance for adherence to all the recommended therapies for optimum success. This includes the necessity for weekly emery board self nail home debridements, and control the nail and skin environment as much as possible by only using a fresh, dry pair of shoes/socks each day, as well as keeping the skin as dry as possible through the use of sprays/powders if necessary. The patient was instructed to discard the emery board after use to prevent reinfection of the involved nail(s). We discussed the mycological and visual clinical effectiveness of topical vs oral antifungal treatments as well as each ones potential side effects and/or any patient- specific medication interactions. We discussed the reasons behind the important requirement of regular liver function testing with oral antifungal therapy for safety. Patient questions regarding use, dosage, successful outcomes, blood tests, and possible pharmaceutical interactions were reviewed and the patient verbalized that all answers were clearly understood, The Pt prefers topical treatment.?Tinea Pedis:?The patient was counseled on the diagnosis, potential etiologies, and treatment options for their skin condition. We discussed the risks and benefits of each option from performing no treatment, to utilizing OTC topical skin creams, prescription topical creams, customized compounded topical medications, and, if necessary, to utilize oral antifungal therapy. We discussed the advantages and disadvantages of each possible treatment and importance for adherence to all the recommended therapies for optimum success and avoid potential complications such as open sore/infection/possible hospitalization. We discussed the potential effectiveness of each topical preparation as well as each ones possible side effects and/or patient medication interactions if oral therapy is selected. Patient questions re: the advantages and disadvantages of each treatment choice, medication use/dosage, successful outcomes, and application consistency were reviewed and the patient verbalized that all answers were clearly understood. The patient was told they can help alleviate symptoms by utilizing moisture absorbant innersoles with activated charcoal and baking soda, applying antifungal sprays daily, aerating toe web spaces at night by putting cotton or lambs wool between the toes, alternating shoe gear daily if possible so they can dry out, changing socks at least once during the day, wearing well-ventilated shoes or sandals. The patient has decided to apply antifungal skin creams to their feet as directed. Rx was sent to their pharmacy at the time of visit.? * Follow Up:?prn * Images: * Sign off status: Completed true * Provider:?Tahmina Streeter DPM Date:? Generated for Amish thomas/Finesse/Trevin on:?04/05/2024 09:18 AM EST History and Physical Notes * HPI (History of Present Illness) Category Sub-Category Detail Notes Category Not es Painful Nails Pt States Last PCP Visit: Date:: 04/19/2023 Skin problems Nature: scaling , redness Location: B/L Duration: several days Course: worse Examination Category Sub-Category Detail Notes Category Not es Neurological SENSORY: Neurological exa m reveals intact sensorium, pain sensation normal, vibration sensation intact, pinprick sensation is normal in the lower extremities, Pt denies, anesthesia, burning, paresthesia, tingling, B/L DEEP TENDON REFLEXES: Achilles, 2/4, B/L Dermatologic SKIN FINDINGS: Skin shows sign( s) of, erythema, scaling, in a moccasin fashion, no fissure(s) present, B/L Orthopedic MUSCLE STRENGTH: 5/5 all groups in a symm etrical fashion , B/L General Examination GENERAL APPEARANCE: Reveals a pleasant, alert, well- nourished, well-developed, well hydrated individual, who demonstrates proper attention to hygiene/body habitus, and is in no acute distress, Pt serves as own historian for office visit today ORIENTED: person, place, and t rolan Vascular DP PULSES (B): 3/4, B/L PT PULSES (B): 3/4, B/L CAPILLARY FILL TIME: immediate, all digi ts, B/L TEMPERTURE GRADIENT (C): warm to cool, p roximal to distal, B/L TROPHIC CONDITION-TEXTURE/ELASTICITY/TURGOR/HAIR GROWTH (B): normal, B/L EDEMA (C): absent, B/L PIGMENTATION: normal, B/L Nails NAILS are: Elongated, overg rown, dystrophic, lytic, greater than 3mm thick, discolored and friable with crumbly malodorous subungual debris, with pain on palpation, 1-5 B/L
[2024-04-05 10:05] VITALS: BP 150/80; PULSE 76; O2SAT 99; BMI 36.2
--- NOTE | 2024-04-05 10:05 | MHC.PC.OV ---
Vital Signs 04/05/24 10:05 Height 5 ft 5 in Weight 217 lb 6 oz BMI 36.2 BP 150/80 H Blood Pressure Location Lt brachial Position Sitting Pulse 76 Pulse Source Pulse Oximeter Pulse Oximetry (%) 99 Oxygen Delivery Method Room Air Intake Visit Reasons: f/u Blood pressure readings Usability Architect Required: No Accompanied by: Self / Same As Patient Allergies lisinopril Adverse Reaction (Intermediate, Verified 04/05/24 10:08) Frequent stool Medication List - Last Reconciled 04/05/24 by Levi Celeste PA-C amlodipine 10 mg PO DAILY 30 days hydrochlorothiazide 25 mg PO DAILY 30 days Tobacco use date assessed: 02/16/24 Fall risk assessment: No Falls in past year Last assessed Fall Risk: 04/05/24 Dental Screening Dental Screen Date: 01/17/24 HPI f/u Blood pressure readings HPI Details patient is a 64-year-old male here today for 4 week follow-up visit. Today we are discussing his high blood pressure. Patient continues on amlodipine 10 and recently started hydrochlorothiazide 25 mg Patient's blood pressure seems to be better controlled though still slightly elevated. He has lost weight since last office visit. Patient does bring in home readings which do show elevated systolic readings 140s to 150s systolic. Fortunately patient is asymptomatic without any headache, chest pain, dizziness ect.. Has been trying to be more physically active and following a low-sodium diet. Does have a family history of high blood pressure. 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 1. Little interest or pleasure in doing things: not at all 2. Feeling down, depressed, or hopeless: not at all 3. Trouble falling or staying asleep, or sleeping too much: not at all 4. Feeling tired or having little energy: not at all 5. Poor appetite or overeating: not at all 6. Feeling bad about yourself - or that you are a failure or have let yourself or your family down: not at all 7. Trouble concentrating on things, such as reading the newspaper or watching television: not at all 8. Moving or speaking so slowly that other people could have noticed. Or the opposite - being so fidgety or restless that you have been moving around a lot more than usual: not at all 9. Thoughts that you would be better off or of hurting yourself in some way: not at all Total score: 0 Depression Screening Interpretation: Negative Depression Screening Done: Yes 75757 - PHQ-9 Billing: Yes Source: Developed by Drs. Con Shearer, Haley Ortiz, Ciro Manzo and colleagues, with an educational татьяна from [employer]. Thrive Questionnaire Date Thrive assessed: 04/05/24 I am a: Patient What is your living situation today?: I have a steady place to live Within the past 12 months, did the food you bought not last and you didn't have the money to get more?: Never true Within the past 12 months, did you worry whether your food would run out before you got money to buy more?: Never true Do you have trouble paying for medicines?: No Do you have trouble getting transportation to medical appointments?: No Do you have trouble paying your heating and electricity bill?: No Do you have trouble taking care of your child, family member or friend?: No Do you have trouble with day-to-day activities such as bathing, preparing meals, shopping, managing finances, etc.?: No Are you currently unemployed and looking for a job?: Yes Are you interested in more education?: No Please select the resources that you would like help with: None Currently or been in a relationship where the following occur: No concerns reported THRIVE Score: 0 AUDIT C Alcohol Use Questionnaire (AUDIT-C) 1. How often do you have a drink containing alcohol?: 2-4 times a month 2. How many drinks containing alcohol do you have on a typical day when you are drinking?: 1 or 2 3. How often do you have six or more drinks on one occasion?: Never Total Score: 2 RUTH ANN-7 AMB Questionnaire RUTH ANN-7 Date RUTH ANN - 7 assessed: 04/05/24 Feeling nervous, anxious, or on edge: 0 = Not at all Not being able to stop or control worryin = Not at all Worrying too much about different things: 0 = Not at all Trouble relaxin = Not at all Being so restless that it is hard to sit still: 0 = Not at all Becoming easily annoyed or irritable: 0 = Not at all Feeling afraid as if something awful might happen: 0 = Not at all Total RUTH ANN-7 score (0-4 normal; 5-9 mild; 10-14 moderate; 15-21 severe): 0 Source: Developed by Drs. Con Shearer, Haley Ortiz, Ciro Manzo and colleagues, with an educational татьяна from [employer]. RUTH ANN-7 Assessment Billing RUTH ANN-7 Assessment Tool: RUTH ANN-7 Assessment 16821 Review of Systems Const Denies headache(s) Eyes Denies loss of vision ENT Denies vertigo, Denies dizziness, Denies headache(s) and Denies sore throat Card Denies chest pain, Denies leg edema and Denies lightheadedness Resp Denies cough, Denies hemoptysis and Denies wheezing GI Denies abdominal pain, Denies melena, Denies constipation, Denies diarrhea and Denies vomiting Denies dysuria, Denies urinary frequency and Denies urinary urgency Musc Denies arthralgias, Denies joint swelling, Denies numbness and Denies tingling Neuro Denies Abnormal speech present, Denies behavioral changes, Denies vertigo, Denies dizziness, Denies headache(s), Denies loss of vision, Denies memory loss, Denies numbness and Denies tingling Psych Denies anxiety, Denies behavioral changes, Denies depression, Denies memory loss and Denies panic attacks [place]/Lymph Denies easy bleeding and Denies easy bruising Aller/Immun Denies wheezing Physical exam (Primary Care) Vital Signs: Last Vital Signs Pulse 76 04/05/24 10:05 BP 150/80 H 04/05/24 10:05 Pulse Ox 99 04/05/24 10:05 Oxygen Delivery Method Room Air 04/05/24 10:05 BMI result Body Mass Index 36.2 Tobacco/Smoking Status: Tobacco use Status Tobacco use date assessed 02/16/24 04/05/24 10:07 Patient Tobacco Use Status Never used Tobacco 04/05/24 10:07 e-Cigarette/Vaping Use Never Used 04/05/24 10:07 PHQ-9: PHQ-9 Score PHQ-9: Total score 0 04/05/24 10:13 Depression Screening Interpretation: Negative Thrive Assessment: Date of Thrive Assessment Date Thrive assessed 04/05/24 04/05/24 10:07 Currently or been in a relationship where the following occur: No concerns reported Const General: healthy appearing, no acute distress, alert and awake Nutritional Appearance: well nourished Orientation/consciousness: oriented to person, oriented to place and oriented to time HENMT Ears: TM's normal bilaterally General nose exam: Normal nasal mucous membranes and turbinates present Eyes Conjunctivae: conjunctivae normal Sclerae: sclerae normal Pupils: Equal, round and reactive pupils present Neck Neck: Yes no lymphadenopathy and Yes no JVD Thyroid: Thyroid normal Carotids: no bruits Resp Effort & Inspection: normal respiratory effort and not tachypneic Auscultation: no crackles, no rales, no rhonchi and no wheezes Cardio Rate: regular rate Rhythm: regular rhythm Heart sounds: no murmurs and normal S1 and S2 GI Palpation (GI): Soft to palpation, nontender, no hepatomegaly and no splenomegaly Auscultation: normal bowel sounds Skin General skin exam: no rashes or lesions noted and dry skin Neuro General: oriented to person, oriented to place and oriented to time Cranial nerves: Yes Equal, round and reactive pupils present Speech: No Abnormal speech present Gait exam (Neuro): Normal gait present Motor exam (neuro): no tremor noted Extrem Right upper extremity: full ROM Left upper extremity: full ROM Right lower extremity: full ROM; no edema Left lower extremity: full ROM; no edema Psych Mental Status: mental status grossly normal Speech and movement: Normal speech and movement present Affect: normal affect Attitude: cooperative Thought process: Normal thought process present Coding Level of Care Code Est Pt Level 3 (94104) Diagnoses Primary hypertension I10 Hypertension type: primary hypertension Additional Codes RUTH ANN-7 Assessment Billing - RUTH ANN-7 Assessment Tool: RUTH ANN-7 Assessment 05202 ([id number]) PHQ-9 - 10439 - PHQ-9 Billing: Yes ([id number]) Assessment & Plan Assessment & Plan (1) HTN (hypertension): Code(s): I10 - Essential (primary) hypertension Category: Medical Qualifiers: Hypertension type: primary hypertension Qualified Code(s): I10 - Essential (primary) hypertension Plan: Patient's blood pressure remains slightly elevated at home and in office today. He has lost a few lb since last office visit. Working hard on low-sodium diet. Patient is asymptomatic without any chest discomfort, headaches or dizziness Blood pressures seem to have gotten better overall and will continue him on his current dose of amlodipine and hydrochlorothiazide at maximal doses. Will consider adding on losartan. Goal blood pressures to be below 140/90 Orders: Orders Comprehensive [place]. Panel Fast 04/05/24 I10 - Essential (primary) hypertension Microalbumin, Random (w Creat) 04/05/24 I10 - Essential (primary) hypertension Lipid Panel 04/05/24 E78.1 - Pure hyperglyceridemia Complete Blood Count no Diff 04/05/24 I10 - Essential (primary) hypertension Medications: Refilled amlodipine 10 mg PO DAILY 30 days 30 tabs 1RF I10 - Essential (primary) hypertension hydrochlorothiazide 25 mg PO DAILY 30 days 30 tabs 3RF I10 - Essential (primary) hypertension
== END 2024-04-05 10:26 | disposition home or self-care (01) ==
PROVIDERS: PCP Physician Assistant; Visit Provider Physician Assistant
DX: I10 Essential (primary) hypertension (principal)

== ENCOUNTER → 2024-04-05 09:12 | Outpatient (BNVA) | payer BC, SELFPAY | PROVIDERS: PCP Physician Assistant; Visit Provider Physician Assistant | DX: I10 Essential (primary) hypertension (principal); Z79.899 Other long term (current) drug therapy | CPT/HCPCS: 96127 ==

== ENCOUNTER 2024-04-27 07:25 | Outpatient (AMB) | payer BC, SELFPAY ==
--- NOTE | 2024-04-27 07:32 | MHC.OFFVIS ---
Vital Signs 04/27/24 07:35 Height 5 ft 8 in Weight 211 lb BMI 32.1 BP 154/72 H Blood Pressure Location Lt brachial Position Sitting Pulse 81 Intake Visit Reasons: pre colonoscopy Intake Note: Patient new consult for 1st pre Colonoscopy. Patient denies any GI issues. 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 Denies recent change in bowel habits, constipation, diarrhea, black stools or rectal bleeding. Patient has hypertension and denies major cardiac or pulmonary problems, loud snoring or sleep apnea Denies problems with anesthesia in the past. Denies being on chronic anticoagulation. Pt is and has 2 children. 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 Patient denies known family history of colon polyps, colon cancer or other GI malignancies. 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 Cognitive needs: No Hearing needs: No Vision needs: No Review of Systems Const Denies fever(s), Denies headache(s) and Denies weight loss Eyes Denies eye discharge and Denies irritation ENT Reports Normal hearing present, Denies dysphagia, Denies dizziness and Denies headache(s) Card Denies chest pain, Denies leg edema and Denies dyspnea on exertion Resp Denies cough, Denies dyspnea on exertion and Denies wheezing GI Denies abdominal pain, Denies change in bowel habits, Denies dysphagia and Reports heartburn Denies dysuria Musc Denies back pain and Denies arthralgias Skin/Breast Denies pruritus, Denies rash and Denies jaundice Neuro Reports Normal hearing present, Denies Abnormal speech present, Denies dizziness, Denies headache(s) and Denies seizure-like activity Psych Denies anxiety, Denies depression and Denies panic attacks Endo Denies cold intolerance, Denies flushing and Denies heat intolerance Everett/Lymph Denies easy bleeding and Denies easy bruising Aller/Immun Denies wheezing Physical Exam Vital Signs: Last Vital Signs Pulse 81 04/27/24 07:35 BP 154/72 H 04/27/24 07:35 BMI result Body Mass Index 32.1 Const General: healthy appearing and no acute distress Nutritional Appearance: obese Orientation/consciousness: patient oriented x3 Limitations: no limitations HEENT Head: Yes normal to inspection Ears: hearing grossly normal bilaterally Eyes Sclerae: sclerae normal Pupils: Equal, round and reactive pupils present Neck Neck: Yes normal visual inspection Chest Chest palpation & inspection: normal inspection of the chest Resp Effort & Inspection: normal respiratory effort Auscultation: clear to auscultation bilaterally Cardio Palpation: normal PMI Rate: regular rate Rhythm: regular rhythm Heart sounds: S1 normal heart sound present, S2 normal heart sound present and no murmurs GI Palpation (GI): Soft to palpation, nontender and No hepatosplenomegaly present Auscultation: normal bowel sounds Rectal Exam - Male: Yes deferred Skin General skin exam: no rashes or lesions noted Neuro General: patient oriented x3, gait normal and moves all extremities Cranial nerves: Yes Equal, round and reactive pupils present and Yes Normal hearing present Speech: No Abnormal speech present Psych Appearance: grossly normal Mental Status: mental status grossly normal Assessment & Plan Assessment & Plan (1) Colon cancer screening: Code(s): Z12.11 - Encounter for screening for malignant neoplasm of colon Category: Medical Plan 64 YM here to schedule his first screening colonoscopy. Denies recent change in bowel habits, constipation, diarrhea, black stools or rectal bleeding. Patient has hypertension and denies major cardiac or pulmonary problems, loud snoring or sleep apnea Denies problems with anesthesia in the past. Denies being on chronic anticoagulation. Patient denies known family history of colon polyps, colon cancer or other GI malignancies. Patient was advised to schedule a colonoscopy. Colonoscopy prep and procedure and potential complications were reviewed with the patient. FU in 6 months Medications: New polyethylene glycol 3350 (Miralax) Mix Miralax with 64 oz(8 cups) of Crystal light. Take 2 tablets of Dulcolax qt 12 pm. Wait to have your 1st bowel movement, then begin drinking Miralax. Drink a glass of Miralax every 10-15 minutes until you are finished. You will drink at least another 4 cups of clear liquid of your choice over the next 2 hours. Please drink as many clear liquids as possible You may have clear liquids up to four hours before your procedure 17 grams PO DAILY 1 day 238 grams 0RF bisacodyl (Dulcolax (bisacodyl)) Take 4 tablets at 12 pm the day before colonoscopy appointment 20 mg (4 x 5 mg) PO ONCE 1 day 4 tabs 0RF colon prep Coding Level of Care Code New Pt Level 4 (96535) Diagnoses Colon cancer screening Z12.11 Time Spent (min) 21
[2024-04-27 07:35] VITALS: BP 154/72; PULSE 81; BMI 32.1
== END 2024-04-27 08:00 | disposition home or self-care (01) ==
PROVIDERS: PCP Physician Assistant; Visit Provider Internal Medicine Gastroenterology
DX: Z01.818 Encounter for other preprocedural examination (principal); Z12.11 Encounter for screening for malignant neoplasm of colon
CPT/HCPCS: S0285

== ENCOUNTER → 2024-04-27 07:25 | Outpatient (BNVA) | payer BC, SELFPAY | PROVIDERS: PCP Physician Assistant; Visit Provider Internal Medicine Gastroenterology ==

== ENCOUNTER 2024-08-01 06:02 | Outpatient (REF) | payer BC, SELFPAY ==
--- OUTSIDE RECORDS SUMMARY | 2024-08-01 06:05 | XMS_ITS | Patient Health Record ---
Author Organization [facility] Address [address] [facility] [place] [address] Care Team Providers Care Coin Dealer Name Role Phone Enricoheather Tahmina Unavailable [phone] Allergies No Known Allergies Reason For Referral [...] 08/08/2023 Encounters [facility] [address] [facility]/08/[facility]23 Tahmina Streeter Tinea unguium B35.1 ; [...] Insured Coverage Start Date Coverage End Date [facility] [address] [place] [address] [phone] [id number] Bob Connell Self - patient is the insured Medical (General) History Surgical History Surgery Date(Month/Year) knee surgery 09/25/1977 knee surgery 09/25/1978 cartilage removal 09/25/1977 cartilage removal 09/25/1978 tooth removed
--- OUTSIDE RECORDS SUMMARY | 2024-08-01 06:06 | XMS_ITS ---
[facility] [place] Address [address] [facility] [place] [address] Care Team Providers Care Export Freight Clerk Name Role Phone Tahmina Streeter Unavailable [phone] Allergies No Known Allergies REASON FOR VISIT [...] 08/08/2023 Encounters Encounter Location [facility] [place] [address] 08/08/2023 Tahmina Streeter Tinea unguium B35.1 ; [...] as necessary. Patient chooses, no pharmaceutical tx (55259) Progress Notes * Bob CONNELLDOB:1960 (63 yo M)Acc No.[id number]:08/08/2023 Progress Notes Patient:?Bob Connell Provider:?Tahmina Streeter DPM :1960???Age:63 Y???Sex:Male Vidal e:08/08/2023 Address:[address] [place], [place] [id number] Subjective: * Chief Complaints: * ???Painful nail(s) [...] bike riding, rowing. ?Marital status: . ?Occupation: [employer]. * Medications:?TakingAmoxicill in , [...] as necessary. Patient chooses, no pharmaceutical tx (11856).? * Procedure Codes:?35015 ROSENDO SMILEY, 1-5, Modifiers: XS * Preventive [...] Streeter DPM Date:? Generated for Amish thomas/Finesse/Trevin on:?08/01/2024 06:05 AM EDT History and Physical Notes * HPI (History [...]
[2024-08-01 07:52] LABS: Creatinine Urine 97.19 mg/dL; Microalbum/Creatinine Ratio Ur 7.2 ug/mg cr (<30)
[2024-08-01 07:55] LABS: Hemoglobin 15.1 g/dl (14.0-18.0); Mean Corpuscular HGB Conc 35.1 g/dl (31.0-36.0); Mean Corpuscular Hemoglobin 31.2 pg (27.0-33.0); Mean Corpuscular Volume 88.8 fL (80.0-98.0); Platelet Count 194 X10*3/uL (160-400); Red Blood Count 4.84 X10*6/uL (4.60-5.80); Red Cell Distribution Width 12.3 % (11.0-16.0); White Blood Count 5.6 X10*3/uL (4.8-10.8)
[2024-08-01 08:01] LABS: Alanine Aminotransferase 47 U/L (0-40); Albumin Level 4.3 g/dL (3.5-5.0); Alkaline Phosphatase 81 U/L (39-117); Anion Gap 11 (12-20); Aspartate Amino Transferase 31 U/L (5-37); Bilirubin Total 0.4 mg/dL (0.0-1.0); Blood Urea Nitrogen 22 mg/dL (9-16); Calcium 9.7 mg/dL (8.4-10.2); Carbon Dioxide 25 mmol/L (22-29); Chloride 109 mmol/L (96-108); Cholesterol 169 mg/dL (<200); Estimated Glomerular Filt Rate > 60; Glucose Fasting 115 mg/dL (60-99); HDL Cholesterol 49 mg/dL (>40); LDL Cholesterol Calculated 107 mg/dL (<100); Potassium 4.1 mmol/L (3.3-5.1); Sodium 141 mmol/L (135-145); Triglycerides 68 mg/dL (<150)
== END 2024-08-01 06:03 | disposition home or self-care (01) ==
LOC: HO.LAB 06:02
PROVIDERS: PCP Physician Assistant; Visit Provider Physician Assistant
DX: I10 Essential (primary) hypertension (principal); E78.1 Pure hyperglyceridemia
CPT/HCPCS: 36415; 80053; 80061; 82043; 82570; 85027

== ENCOUNTER 2024-08-07 08:31 | Outpatient (AMB) | payer BC, SELFPAY ==
--- NOTE | 2024-08-07 08:45 | MHC.PC.OV ---
Vital Signs 08/07/24 08:48 Height 5 ft 8 in Weight 220 lb 8 oz BMI 33.5 BP 140/90 H Blood Pressure Location Rt brachial Position Sitting Pulse 70 Pulse Source Pulse Oximeter Temp 97.3 F Temp Source Temporal Artery Scan Pulse Oximetry (%) 97 Oxygen Delivery Method Room Air Intake Visit Reasons: 4mth f/u Intake Note: Patient is here to follow up on HTN, High Cholesterol. Fuel Handler Required: No Trucker: Not Required per policy Accompanied by: Self / Same As Patient Allergies lisinopril Adverse Reaction (Intermediate, Verified 08/07/24 08:58) Frequent stool Medication List - Last Reconciled 08/07/24 by Levi Celeste PA-C amlodipine 10 mg PO DAILY 30 days bisacodyl (Dulcolax (bisacodyl)) 20 mg (4 x 5 mg) PO ONCE 1 day hydrochlorothiazide 25 mg PO DAILY 30 days polyethylene glycol 3350 (Miralax) 17 grams PO DAILY 1 day Tobacco use date assessed: 08/07/24 Fall risk assessment: No Falls in past year Last assessed Fall Risk: 08/07/24 Dental Screening Dental Screen Date: 08/07/24 Did you have a dental visit in the last 12 months?: Yes Did you have a dental problem in the last 6 months where you did not have access to dental care?: No Was dental information given to patient?: Patient has dentist HPI 4mth f/u HPI Details patient is a 64-year-old male here today for follow-up visit Patient has a past medical history significant for hypertension, borderline high cholesterol and obesity.. Hypertension: Patient continues on amlodipine 10 and recently started hydrochlorothiazide 25 mg Patient's blood pressure seems to be better controlled though still slightly elevated. He has lost weight since last office visit. Patient does bring in home readings which do show elevated systolic readings 140s to 150s systolic. Fortunately patient is asymptomatic without any headache, chest pain, dizziness ect.. PLAN: Will send for EKG and renal ultrasounds to evaluate for secondary form of hypertension .. Class 1 obesity: Patient does understand his BMI is over 30 will continue working on being more physically active and adapting to better eating habits to reduce his weight . Borderline high cholesterol: Most recent fasting lipid panel showing excellent control of his total cholesterol and LDL. He has been making lifestyle and dietary changes Has been trying to be more physically active and following a low-sodium diet. Does have a family history of high blood pressure. 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 1. Little interest or pleasure in doing things: not at all 2. Feeling down, depressed, or hopeless: not at all 3. Trouble falling or staying asleep, or sleeping too much: not at all 4. Feeling tired or having little energy: not at all 5. Poor appetite or overeating: not at all 6. Feeling bad about yourself - or that you are a failure or have let yourself or your family down: not at all 7. Trouble concentrating on things, such as reading the newspaper or watching television: not at all 8. Moving or speaking so slowly that other people could have noticed. Or the opposite - being so fidgety or restless that you have been moving around a lot more than usual: not at all 9. Thoughts that you would be better off or of hurting yourself in some way: not at all Total score: 0 Depression Screening Interpretation: Negative Depression Screening Done: Yes 34167 - PHQ-9 Billing: Yes Source: Developed by Drs. Con Shearer, Haley Ortiz, Ciro Manzo and colleagues, with an educational татьяна from [employer]. Thrive Questionnaire Date Thrive assessed: 08/07/24 I am a: Patient What is your living situation today?: I have a steady place to live Within the past 12 months, did the food you bought not last and you didn't have the money to get more?: Never true Within the past 12 months, did you worry whether your food would run out before you got money to buy more?: Never true Do you have trouble paying for medicines?: No Do you have trouble getting transportation to medical appointments?: No Do you have trouble paying your heating and electricity bill?: No Do you have trouble taking care of your child, family member or friend?: No Do you have trouble with day-to-day activities such as bathing, preparing meals, shopping, managing finances, etc.?: No Are you currently unemployed and looking for a job?: No Are you interested in more education?: No Please select the resources that you would like help with: None Currently or been in a relationship where the following occur: No concerns reported THRIVE Score: 0 AUDIT C Alcohol Use Questionnaire (AUDIT-C) 1. How often do you have a drink containing alcohol?: 2-4 times a month 2. How many drinks containing alcohol do you have on a typical day when you are drinking?: 1 or 2 Total Score: 2 RUTH ANN-7 AMB Questionnaire RUTH ANN-7 Date RUTH ANN - 7 assessed: 08/07/24 Feeling nervous, anxious, or on edge: 0 = Not at all Not being able to stop or control worryin = Not at all Worrying too much about different things: 0 = Not at all Trouble relaxin = Not at all Being so restless that it is hard to sit still: 0 = Not at all Becoming easily annoyed or irritable: 0 = Not at all Feeling afraid as if something awful might happen: 0 = Not at all Total RUTH ANN-7 score (0-4 normal; 5-9 mild; 10-14 moderate; 15-21 severe): 0 Source: Developed by Drs. Con Shearer, Haley Ortiz, Ciro Manzo and colleagues, with an educational татьяна from [employer]. RUTH ANN-7 Assessment Billing RUTH ANN-7 Assessment Tool: RUTH ANN-7 Assessment 16867 Review of Systems Const Denies headache(s) Eyes Denies loss of vision ENT Denies vertigo, Denies dizziness, Denies headache(s) and Denies sore throat Card Denies chest pain, Denies leg edema and Denies lightheadedness Resp Denies cough, Denies hemoptysis and Denies wheezing GI Denies abdominal pain, Denies melena, Denies constipation, Denies diarrhea and Denies vomiting Denies dysuria, Denies urinary frequency and Denies urinary urgency Musc Denies arthralgias, Denies joint swelling, Denies numbness and Denies tingling Neuro Denies Abnormal speech present, Denies behavioral changes, Denies vertigo, Denies dizziness, Denies headache(s), Denies loss of vision, Denies memory loss, Denies numbness and Denies tingling Psych Denies anxiety, Denies behavioral changes, Denies depression, Denies memory loss and Denies panic attacks Everett/Lymph Denies easy bleeding and Denies easy bruising Aller/Immun Denies wheezing Physical exam (Primary Care) Vital Signs: Last Vital Signs Temp 97.3 F 08/07/24 08:48 Pulse 70 08/07/24 08:48 BP 140/90 H 08/07/24 08:48 Pulse Ox 97 08/07/24 08:48 Oxygen Delivery Method Room Air 08/07/24 08:48 BMI result Body Mass Index 33.5 BMI Assessment/Plan discussion: High BMI High, discussed plan: lifestyle, weight reduction, dietary and physical activity Tobacco/Smoking Status: Tobacco use Status Tobacco use date assessed 08/07/24 08/07/24 08:56 Patient Tobacco Use Status Never used Tobacco 08/07/24 08:47 e-Cigarette/Vaping Use Never Used 08/07/24 08:47 PHQ-9: PHQ-9 Score PHQ-9: Total score 0 08/07/24 09:02 Depression Screening Interpretation: Negative Thrive Assessment: Date of Thrive Assessment Date Thrive assessed 08/07/24 08/07/24 08:47 Currently or been in a relationship where the following occur: No concerns reported Const Other: OBESE General: healthy appearing, no acute distress, alert and awake Nutritional Appearance: well nourished Orientation/consciousness: oriented to person, oriented to place and oriented to time HENMT Ears: TM's normal bilaterally General nose exam: Normal nasal mucous membranes and turbinates present Eyes Conjunctivae: conjunctivae normal Sclerae: sclerae normal Pupils: Equal, round and reactive pupils present Neck Neck: Yes no lymphadenopathy and Yes no JVD Thyroid: Thyroid normal Carotids: no bruits Resp Effort & Inspection: normal respiratory effort and not tachypneic Auscultation: no crackles, no rales, no rhonchi and no wheezes Cardio Rate: regular rate Rhythm: regular rhythm Heart sounds: no murmurs and normal S1 and S2 GI Palpation (GI): Soft to palpation, nontender, no hepatomegaly and no splenomegaly Auscultation: normal bowel sounds Skin General skin exam: no rashes or lesions noted and dry skin Neuro General: oriented to person, oriented to place and oriented to time Cranial nerves: Yes Equal, round and reactive pupils present Speech: No Abnormal speech present Gait exam (Neuro): Normal gait present Motor exam (neuro): no tremor noted Extrem Right upper extremity: full ROM Left upper extremity: full ROM Right lower extremity: full ROM; no edema Left lower extremity: full ROM; no edema Psych Mental Status: mental status grossly normal Speech and movement: Normal speech and movement present Affect: normal affect Attitude: cooperative Thought process: Normal thought process present Results AMB Hemoglobin A1c AMB Hemoglobin A1c 5.2 % Last Edit by ARRON Monroe on 08/07/24 09:05 Results Reviewed Results Reviewed: Laboratory Last Values Hgb A1c (Clinic) 5.2 % (4.0-6.0) 08/07/24 08:56 Coding Level of Care Code Est Pt Level 4 (37295) Diagnoses Primary hypertension I10 Hypertension type: primary hypertension Borderline high cholesterol E78.9 Class 1 obesity E66.811 Additional Codes PHQ-9 - 67069 - PHQ-9 Billing: Yes ([id number]) RUTH ANN-7 Assessment Billing - RUTH ANN-7 Assessment Tool: RUTH ANN-7 Assessment 78900 ([id number]) Assessment & Plan Assessment & Plan (1) HTN (hypertension): Code(s): I10 - Essential (primary) hypertension Category: Medical Qualifiers: Hypertension type: primary hypertension Qualified Code(s): I10 - Essential (primary) hypertension Plan: Patient continues on amlodipine and hydrochlorothiazide at maximal doses. We did try lisinopril though had side effects. Would consider starting losartan has an additional blood pressure medication. Fortunately he is asymptomatic without any chest discomfort, dizziness or headaches or vision issues. Will send for ultrasound of bilateral renal to rule out secondary forms of hypertension. Goal blood pressure to be below 140/90 (2) Borderline high cholesterol: Code(s): E78.9 - Disorder of lipoprotein metabolism, unspecified Category: Medical Plan: Patient's most recent fasting lipid panel showing good control over total cholesterol and LDL. He will continue on lifestyle dietary modifications. (3) Class 1 obesity: Code(s): E66.811 - Obesity, class 1 Category: Medical Plan: Patient does understand his BMI is over 30 will continue working on being more physically active and adapting to better eating habits to reduce his weight. Orders: Orders ECG 12 lead EKG Today I10 - Essential (primary) hypertension US renal doppler Today I10 - Essential (primary) hypertension AMB Hemoglobin A1c Today R73.09 - Other abnormal glucose Comprehensive [place]. Panel Fast Today R73.09 - Other abnormal glucose Complete Blood Count no Diff Today I10 - Essential (primary) hypertension US renal BI Today I10 - Essential (primary) hypertension Medications: Refilled hydrochlorothiazide 25 mg PO DAILY 30 tabs 3RF 30 days I10 - Essential (primary) hypertension amlodipine 10 mg PO DAILY 30 tabs 1RF 30 days I10 - Essential (primary) hypertension Patient Instructions: Goal: Blood pressure to be below 140/90 :Barriers: Adherence to physical activity and healthy eating habits
[2024-08-07 08:48] VITALS: BP 140/90; PULSE 70; TEMP 36.3; O2SAT 97; BMI 33.5
--- OUTSIDE RECORDS SUMMARY | 2024-08-07 08:54 | XMS_ITS ---
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 Generated for Jaysoni william/Finesse/eTransmitting on:?08/07/2024 08:53 AM EDT
--- OUTSIDE RECORDS SUMMARY | 2024-08-07 08:54 | XMS_ITS ---
[facility] Elena [facility] [place] Address [address] [facility] [place] [address] Care Team Providers Care Supervisor Sunglasses Name Role Phone Tahmina Streeter Unavailable [phone] Allergies No Known Allergies REASON FOR VISIT [...] 08/08/2023 Encounters Encounter Location Date [facility] [place] [address] 08/08/2023 Tahmina Streeter Tinea unguium B35.1 ; [...] as necessary. Patient chooses, no pharmaceutical tx (96600) Progress Notes * Bob CONNELLDOB:1960 (63 yo M)Acc No.[id number]:08/08/2023 Progress Notes Patient:?Bob Connell Provider:?Tahmina Streeter DPM :1960???Age:63 Y???Sex:Male Vidal e:08/08/2023 Address:[address] [place], [place] [id number] Subjective: * Chief Complaints: * ???Painful nail(s) [...] bike riding, rowing. ?Marital status: . 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 * Medications:?TakingAmoxicill in , [...] as necessary. Patient chooses, no pharmaceutical tx (07951).? * Procedure Codes:?69742 ROSENDO SMILEY, 1-5, Modifiers: XS * Preventive [...] Provider:?Tahmina Streeter DPM Date:? Generated for Amish thomas/Finesse/Trevni on:?08/07/2024 08:54 AM EDT History and Physical Notes * [...]
--- OUTSIDE RECORDS SUMMARY | 2024-08-07 08:54 | XMS_ITS | Patient Health Record ---
Author Organization [facility] Address [address] [place] [address] Care Team Providers Care Injection Molding Machine Setter Name Role Phone Enricoheather Tahmina Unavailable [phone] Allergies No Known Allergies Reason For Referral [...] 08/08/2023 Encounters [facility]counter [facility] [address] 08/08/[facility]23 Tahmina Streeter Tinea unguium B35.1 ; [...] Insured Coverage Start Date Coverage End Date [facility] [address] [place] [address] [phone] [id number] 200 [id number] Bob Connell Self - patient is the insured Medical (General) History Surgical History Surgery Date(Month/Year) knee surgery 09/25/1977 knee surgery 09/25/1978 cartilage removal 09/25/1977 cartilage removal 09/25/1978 tooth removed
== END 2024-08-07 09:15 | disposition home or self-care (01) ==
LOC: HO.HMCH 08:32
PROVIDERS: PCP Physician Assistant; Visit Provider Physician Assistant
DX: I10 Essential (primary) hypertension (principal); E78.9 Disorder of lipoprotein metabolism, unspecified; E66.811 Obesity, class 1; Z68.33 Body mass index [BMI] 33.0-33.9, adult; R73.09 Other abnormal glucose

== ENCOUNTER → 2024-08-07 08:31 | Outpatient (BNVA) | payer BC, SELFPAY | PROVIDERS: PCP Physician Assistant; Visit Provider Physician Assistant | DX: I10 Essential (primary) hypertension (principal); E78.9 Disorder of lipoprotein metabolism, unspecified; E66.811 Obesity, class 1; Z68.33 Body mass index [BMI] 33.0-33.9, adult; Z79.899 Other long term (current) drug therapy | CPT/HCPCS: 83036; 96127 ==

== ENCOUNTER 2024-09-24 06:37 | Outpatient (REF) | payer BC, SELFPAY ==
--- NOTE | ~2024-09-24 | US_ITS ---
CLINICAL HISTORY: I10 - Essential (primary) hypertension --- Additional Notes or Special Instructions : Evaluate for secondary form of hypertension US renal duplex ultrasound Comparison: None Technique: Real time duplex ultrasound imaging was performed by the molded frames assembler. Multiple advertising representative static images were saved for review. Findings: Aorta: Normal waveform, default value cm/s. Right kidney: Normal size and echotexture, 13.9 cm length. Main renal artery peak systolic velocities: Proximal: 84 cm/s Mid: 98 cm/s Distal: 78 cm/s Segmental resistive index: 0.73 Renal vein is patent. Renal aortic ratio: 1.1 Left kidney: Normal size and echotexture, 12.1 cm length. Main renal artery peak systolic velocities: Proximal: 81 cm/s Mid: 114 cm/s Distal: 63 cm/s Segmental resistive index: 0.75 Renal vein is patent Peak renal aortic ratio: 1.3 Impression: 1. Normal renal artery duplex This document has been electronically signed by: Gustavo Peterson MD on 09/24/2024 13:54:53
--- NOTE | ~2024-09-24 | US_ITS ---
CLINICAL HISTORY: I10 - Essential (primary) hypertension --- Additional Notes or Special Instructions : Evaluate for secondary form of hypertension US renal duplex ultrasound Comparison: None Technique: Real time duplex ultrasound imaging was performed by the table games floor supervisor. Multiple commercial representative static images were saved for review. Findings: Aorta: Normal waveform, default value cm/s. Right kidney: Normal size and echotexture, 13.9 cm length. Main renal artery peak systolic velocities: Proximal: 84 cm/s Mid: 98 cm/s Distal: 78 cm/s Segmental resistive index: 0.73 Renal vein is patent. Renal aortic ratio: 1.1 Left kidney: Normal size and echotexture, 12.1 cm length. Main renal artery peak systolic velocities: Proximal: 81 cm/s Mid: 114 cm/s Distal: 63 cm/s Segmental resistive index: 0.75 Renal vein is patent Peak renal aortic ratio: 1.3 Impression: 1. Normal renal artery duplex This document has been electronically signed by: Gustavo Peterson MD on 09/24/2024 13:54:53
== END 2024-09-24 06:38 | disposition home or self-care (01) ==
LOC: HO.US 06:37
PROVIDERS: PCP Physician Assistant; Visit Provider Physician Assistant
DX: I10 Essential (primary) hypertension (principal)
CPT/HCPCS: 76775; 93975

== ENCOUNTER → 2024-09-24 06:40 | Outpatient (BNV) | payer BC, SELFPAY | PROVIDERS: PCP Physician Assistant; Visit Provider Radiology Diagnostic Radiology | DX: I10 Essential (primary) hypertension (principal) | CPT/HCPCS: 93975 ==

== ENCOUNTER 2024-10-17 15:04 | Outpatient (REF) | payer BC, SELFPAY ==
[2024-10-17 17:08] LABS: Hematocrit 40.7 % (42.0-52.0); Hemoglobin 14.2 g/dl (14.0-18.0); Mean Corpuscular HGB Conc 34.9 g/dl (31.0-36.0); Mean Corpuscular Hemoglobin 31.0 pg (27.0-33.0); Mean Corpuscular Volume 88.9 fL (80.0-98.0); NRBC Abs Auto 0.000 X10*3/uL (0.0-0.012); NRBC Pct Auto 0.0 /100WBC (0.0-0.2); Platelet Count 222 X10*3/uL (160-400); Red Blood Count 4.58 X10*6/uL (4.60-5.80); White Blood Count 6.9 X10*3/uL (4.8-10.8)
[2024-10-17 17:19] LABS: Appearance Urine Clear; Glucose Urine UA Negative (Negative); PH 6.0 (5.0-9.0); Specific Gravity - Urine 1.015 (1.005-1.025)
[2024-10-17 17:59] LABS: Alanine Aminotransferase 48 U/L (0-40); Albumin Level 4.6 g/dL (3.5-5.0); Alkaline Phosphatase 76 U/L (39-117); Anion Gap 13 (12-20); Aspartate Amino Transferase 31 U/L (5-37); Blood Urea Nitrogen 19 mg/dL (9-16); Calcium 9.6 mg/dL (8.4-10.2); Carbon Dioxide 24 mmol/L (22-29); Chloride 108 mmol/L (96-108); Estimated Glomerular Filt Rate > 60; Potassium 4.4 mmol/L (3.3-5.1); Sodium 141 mmol/L (135-145); Total Protein 7.0 g/dL (6.5-8.0)
== END 2024-10-17 15:05 | disposition home or self-care (01) ==
LOC: HO.LAB 15:04
PROVIDERS: PCP Physician Assistant; Visit Provider Physician Assistant
DX: R30.0 Dysuria (principal); R41.0 Disorientation, unspecified; R73.09 Other abnormal glucose; I10 Essential (primary) hypertension
CPT/HCPCS: 36415; 80053; 81003; 85027

== ENCOUNTER 2024-10-17 15:04 | Outpatient (AMB) | payer BC, SELFPAY ==
--- NOTE | 2024-10-17 15:11 | A.OFFPC_ITS ---
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 Research Required: No Accompanied by: Spouse Allergies lisinopril Adverse Reaction (Intermediate, Verified 10/17/24 15:50) Frequent stool Medication List - Last Reconciled 10/17/24 by Levi Celeste PA-C amlodipine 10 mg PO DAILY 30 days bisacodyl (Dulcolax (bisacodyl)) 20 mg (4 x 5 mg) PO ONCE 1 day hydrochlorothiazide 25 mg PO DAILY 90 days polyethylene glycol 3350 (Miralax) 17 grams PO DAILY 1 day Tobacco use date assessed: 10/17/24 Fall risk assessment: No Falls in past year Last assessed Fall Risk: 10/17/24 Dental Screening Dental Screen Date: 10/17/24 HPI Unable to concentrate 2 HPI0 Details Patient is a 64-year-old male here today for a problem visit. Confusion: The confusion began after starting blood pressure medication, although this is not a common side effect of the medication. The patient reports difficulty comprehending small tasks and needing to repeat actions, which has been frustrating. Family concerned does he often repeats himself and needs constant reminders lately. Concerns here for intracranial pathology thus will try to get MRI of brain to evaluate for intracranial pathology. Will also send for baseline labs in an urinalysis to rule out infection. Also Bob has noted a skin lesion on the head has been present for a couple of months, with some bleeding and raised borders, raising concern for basal cell carcinoma. The patient has a dermatology appointment scheduled but may need an earlier evaluation. Hypertension: Blood pressure remains elevated today in office, there is some confusion as to whether he is still taking hydrochlorothiazide 25 mg, does take amlodipine 10 mg. Recently underwent a renal ultrasound evaluate for renal artery stenosis due to his continued elevation in his blood pressure though normal finding. 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 Con Shearer, Haley Ortiz, Ciro Manzo and colleagues, with an educational татьяна from [employer]. Review of Systems Const Denies headache(s) Eyes Denies loss of vision ENT Denies vertigo, Denies dizziness, Denies headache(s) and Denies sore throat Card Denies chest pain, Denies leg edema and Denies lightheadedness Resp Denies cough, Denies hemoptysis and Denies wheezing GI Denies abdominal pain, Denies melena, Denies constipation, Denies diarrhea and Denies vomiting Denies dysuria, Denies urinary frequency and Denies urinary urgency Musc Denies arthralgias, Denies joint swelling, Denies numbness and Denies tingling Neuro Denies Abnormal speech present, Denies behavioral changes, Reports confusion, Denies vertigo, Denies dizziness, Denies headache(s), Denies loss of vision, Denies memory loss, Denies numbness and Denies tingling Psych Denies anxiety, Denies behavioral changes, Reports confusion, Denies depression, Reports difficulty concentrating, Denies memory loss and Denies panic attacks [place]rett/Lymph Denies easy bleeding and Denies easy bruising Aller/Immun Denies wheezing Physical exam (Primary Care) Vital Signs: Last Vital Signs Temp 97.1 F 10/17/24 15:13 Pulse 86 10/17/24 15:13 BP 154/70 H 10/17/24 15:13 Pulse Ox 94 10/17/24 15:13 Oxygen Delivery Method Room Air 10/17/24 15:13 BMI result Body Mass Index 32.7 Tobacco/Smoking Status: Tobacco use Status Tobacco use date assessed 10/17/24 10/17/24 15:14 Patient Tobacco Use Status Never used Tobacco 10/17/24 15:14 e-Cigarette/Vaping Use Never Used 10/17/24 15:14 Thrive Assessment: Date of Thrive Assessment Date Thrive assessed 10/17/24 10/17/24 15:14 Const General: healthy appearing, no acute distress, alert, awake and confusion Nutritional Appearance: well nourished Orientation/consciousness: oriented to person, oriented to place, oriented to time and confusion HENMT Other: Ears: TM's normal bilaterally General nose exam: Normal nasal mucous membranes and turbinates present Eyes Conjunctivae: conjunctivae normal Sclerae: sclerae normal Pupils: Equal, round and reactive pupils present Neck Neck: Yes no lymphadenopathy and Yes no JVD Thyroid: Thyroid normal Carotids: no bruits Resp Effort & Inspection: normal respiratory effort and not tachypneic Auscultation: no crackles, no rales, no rhonchi and no wheezes Cardio Rate: regular rate Rhythm: regular rhythm Heart sounds: no murmurs and normal S1 and S2 GI Palpation (GI): Soft to palpation, nontender, no hepatomegaly and no splenomegaly Auscultation: normal bowel sounds Skin General skin exam: no rashes or lesions noted and dry skin Neuro General: oriented to person, oriented to place, oriented to time and confusion Cranial nerves: Yes Equal, round and reactive pupils present Speech: No Abnormal speech present Gait exam (Neuro): Normal gait present Motor exam (neuro): no tremor noted Extrem Right upper extremity: full ROM Left upper extremity: full ROM Right lower extremity: full ROM; no edema Left lower extremity: full ROM; no edema Psych Mental Status: mental status grossly normal Speech and movement: Normal speech and movement present Affect: normal affect Attitude: cooperative Thought process: Normal thought process present Coding Level of Care Code Est Pt Level 4 (84010) Diagnoses Primary hypertension I10 Hypertension type: primary hypertension Confusion R41.0 Skin lesion L98.9 Assessment & Plan Assessment & Plan (1) HTN (hypertension): Code(s): I10 - Essential (primary) hypertension Category: Medical Qualifiers: Hypertension type: primary hypertension Qualified Code(s): I10 - Essential (primary) hypertension Plan: Patient's blood pressure still remains slightly elevated. He will start being more consistent with hydrochlorothiazide 25 mg for better blood pressure control. We recently did an renal ultrasound to evaluate for renal artery stenosis though imaging was normal. Goal blood pressures to be below 140/90 (2) Confusion: Code(s): R41.0 - Disorientation, unspecified Category: Medical Plan: The confusion is suspected to be related to blood pressure medication which has been going on over last 2 months, although this is uncommon and was discussed with patient's significant other. A urinalysis and blood work have been ordered to rule out infection or metabolic causes. An MRI is also planned to assess for any intracranial pathology. (3) Skin lesion: Code(s): L98.9 - Disorder of the skin and subcutaneous tissue, unspecified Category: Medical Plan: The skin lesion on the head, suspected to be basal cell carcinoma, requires dermatological evaluation and biopsy. A referral to dermatology has been made, and efforts will be made to expedite the appointment. PLEASE SEE PICTURE SECTION Orders: Orders 2 MR head/brain wo con 10/17/24 R41.0 - Disorientation, unspecified UA CC w/rflx Micro + Cult 10/17/24 R30.0 - Dysuria, R41.0 - Disorientation, unspecified Comprehensive Met. Panel 10/17/24 R41.0 - Disorientation, unspecified Complete Blood Count no Diff 10/17/24 R41.0 - Disorientation, unspecified Referrals 2 Dermatology Referral L98.9 - Disorder of the skin and subcutaneous tissue, unspecified
[2024-10-17 15:13] VITALS: BP 154/70; PULSE 86; TEMP 36.2; O2SAT 94; BMI 32.7
--- OUTSIDE RECORDS SUMMARY | 2024-10-17 15:25 | XMS_ITS | Patient Health Record ---
Author Organization [facility] Address [address] [place] [address] Care Team Providers Care Rope Coiling Machine Operator Name Role Phone Tahmina Streeter Unavailable [phone] Allergies No Known Allergies Reason For Referral No Information Medications Medication SIG (Take, Route, Frequency, Duration) Notes Start Date End Date Status Amlodipine & Diet Manage Prod Active Amoxicillin temp Active Ciclopirox Olamine 0.77 % 1 application Externally Twice a day; Duration: 30 days Active Ketoconazole 2 % 1 application Apply a thin layer of cream externally Twice a day to the skin on feet including between the toes; Duration: 30 days 10/11/2024 Active Immunizations Vaccine Route Administration Date Status Comme nts Influenza Unknown 02/10/2024 Administered Social History Tobacco Use: Social History Observation Description Date Details (start date - stop date) Never Smoker NA - NA Tobacco use other than smoking: Question Answer Notes Are you an other tobacco user? No Tobacco Control (Standard) Question Answer Notes Tobacco use: Nonsmoker Additional Findings: Tobacco non-user Current no nsmoker AUDIT-C (Standard) Question Answer Notes Did you have a drink containing alcohol in the p ast year? No Points 0 Interpretation Negative Vital Signs Blood pressure diastolic 60 mm Hg 10/11/2024 Height 5ft 8in in 10/11/2024 Blood pressure systolic 150 mm Hg 10/11/2024 Weight 200 lbs 10/11/2024 BMI 30.41 kg/m2 10/11/2024 Encounters Encounter [facility] [address] [address] [facility]/11/2024 Tahmina Perica Tinea unguium B35.1 ; Tinea pedis of both feet B35.3 ; Pain in right toe(s) M79.674 and Pain in left toe(s) M79.675 Assessments Encounter Date Diagnosis (ICD Code) Assessment Notes Treatment Notes Treatment Clinical Notes Section Notes 10/11/2024 Tinea unguium (ICD-10 - B35.1) 10/11/2024 Tinea pedis of both feet (ICD-10 - B35.3) 10/11/2024 Pain in right toe(s) (ICD-10 - M79.674) 10/11/2024 Pain in left toe(s) (ICD-10 - M79.675) Plan Of Treatment No Information Insurance Providers Payer Name Payer Address Payer Phone Subscriber Number Group Number Insured Name Patient Relationship to Insured Coverage Start Date Coverage End Date [facility] All Others [address] [place] [address] [phone] [id number] Bob Connell Self - patient is the insured Medical (General) History Medical History History ICD Code High Blood Pressure Surgical History Surgery Date(Month/Year) knee surgery 09/25/1977 knee surgery 09/25/1978 cartilage removal 09/25/1977 cartilage removal 09/25/1978 tooth removed
== END 2024-10-17 16:49 | disposition home or self-care (01) ==
PROVIDERS: PCP Physician Assistant; Visit Provider Physician Assistant
DX: I10 Essential (primary) hypertension (principal); R41.0 Disorientation, unspecified; L98.9 Disorder of the skin and subcutaneous tissue, unspecified

== ENCOUNTER 2024-11-06 16:41 | Outpatient (REF) | payer BC, SELFPAY ==
--- NOTE | ~2024-11-06 | MR_ITS ---
CLINICAL HISTORY: R41.0 - Disorientation, unspecified --- Additional Notes or Special Instructions: Patient with worsening confusion over the last 2 months MR Brain without gadolinium Comparison: None provided Findings: No restricted diffusion. No intra-axial mass or hemorrhage. Age appropriate cerebral volume loss. Patchy high FLAIR signal within the periventricular and subcortical white matter. No midline shift. No hydrocephalus. Vascular flow voids are intact. Orbital contents are unremarkable. The sinuses and mastoid air cells are clear. No focal bone lesion. IMPRESSION: Unremarkable brain MRI. This document has been electronically signed by: Gustavo Peterson MD on 11/06/2024 18:14:26
== END 2024-11-06 16:42 | disposition home or self-care (01) ==
LOC: HO.MRI 16:41
PROVIDERS: Visit Provider Physician Assistant
DX: R41.0 Disorientation, unspecified (principal)
CPT/HCPCS: 70551

== ENCOUNTER → 2024-11-06 17:00 | Outpatient (BNV) | payer BC, SELFPAY | PROVIDERS: Visit Provider Radiology Diagnostic Radiology | DX: R41.0 Disorientation, unspecified (principal) | CPT/HCPCS: 70551 ==

== ENCOUNTER 2024-12-11 08:30 | Outpatient (AMB) | payer BC, SELFPAY ==
--- NOTE | 2024-12-11 08:42 | MHC.PC.OV ---
Vital Signs 12/11/24 08:43 Height 5 ft 8 in Weight 192 lb 4 oz BMI 29.2 BP 126/70 Blood Pressure Location Lt brachial Position Sitting Pulse 66 Pulse Source Pulse Oximeter Temp 97.1 F Temp Source Temporal Artery Scan Pulse Oximetry (%) 96 Oxygen Delivery Method Room Air Intake Visit Reasons: 3 Months f/u Intake Note: Patient is here to follow up on HTN. Crop Supervisor Required: No Sales Development Director: Present Accompanied by: Spouse Allergies lisinopril Adverse Reaction (Intermediate, Verified 12/11/24 08:51) Frequent stool Medication List - Last Reconciled 12/11/24 by Levi Celeste PA-C amlodipine 10 mg PO DAILY 30 days bisacodyl (Dulcolax (bisacodyl)) 20 mg (4 x 5 mg) PO ONCE 1 day hydrochlorothiazide 25 mg PO DAILY 90 days polyethylene glycol 3350 (Miralax) 17 grams PO DAILY 1 day Tobacco use date assessed: 12/11/24 Fall risk assessment: No Falls in past year Last assessed Fall Risk: 12/11/24 Dental Screening Dental Screen Date: 10/17/24 HPI 3 Months f/u HPI Details Patient is a 64-year-old male here today for follow-up visit Confusion: Cognitive impairment has been a concern for approximately 2 months with no identifiable cause found in initial evaluations, including MRI and blood tests. He has been out of work as he has not been able to cognitively handled his job. He has been out on short-term disability which may need to be extended. He also has somewhat of balance issues though unclear if this is related to his knee arthritis as well. Family is concerned as they have seen a decline over the last 2-3 months in patient's cognition. The patient has an upcoming appointment with a neurologist for further assessment.. PLAN: Will plan for PET scan to evaluate for any malignant activity secondary to his recent diagnosis of squamous cell carcinoma * Squamous cell carcinoma of the scalp: Recently underwent a Mohs procedure with the [facility]. Will try to get records of patient's biopsy of the scalp. Hypertension: Patient's blood pressure acceptable today in office. Continues on hydrochlorothiazide and amlodipine with good effect. He has lost significant amount of weight somewhat intentionally. 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 1. Little interest or pleasure in doing things: not at all 2. Feeling down, depressed, or hopeless: not at all 3. Trouble falling or staying asleep, or sleeping too much: not at all 4. Feeling tired or having little energy: not at all 5. Poor appetite or overeating: not at all 6. Feeling bad about yourself - or that you are a failure or have let yourself or your family down: not at all 7. Trouble concentrating on things, such as reading the newspaper or watching television: not at all 8. Moving or speaking so slowly that other people could have noticed. Or the opposite - being so fidgety or restless that you have been moving around a lot more than usual: not at all 9. Thoughts that you would be better off or of hurting yourself in some way: not at all Total score: 0 Depression Screening Interpretation: Negative Depression Screening Done: Yes 72717 - PHQ-9 Billing: Yes Source: Developed by Drs. Con Shearer, Haley Ortiz, Ciro Manzo and colleagues, with an educational татьяна from [employer]. Thrive Questionnaire Date Thrive assessed: 10/17/24 I am a: Patient What is your living situation today?: I have a steady place to live Within the past 12 months, did the food you bought not last and you didn't have the money to get more?: Never true Within the past 12 months, did you worry whether your food would run out before you got money to buy more?: Never true Do you have trouble paying for medicines?: No Do you have trouble getting transportation to medical appointments?: No Do you have trouble paying your heating and electricity bill?: No Do you have trouble taking care of your child, family member or friend?: No Do you have trouble with day-to-day activities such as bathing, preparing meals, shopping, managing finances, etc.?: No Are you currently unemployed and looking for a job?: No Are you interested in more education?: No Please select the resources that you would like help with: None Currently or been in a relationship where the following occur: No concerns reported THRIVE Score: 0 AUDIT C Alcohol Use Questionnaire (AUDIT-C) 1. How often do you have a drink containing alcohol?: Never Total Score: 0 RUTH ANN-7 AMB Questionnaire RUTH ANN-7 Date RUTH ANN - 7 assessed: 10/17/24 Feeling nervous, anxious, or on edge: 0 = Not at all Not being able to stop or control worryin = Not at all Worrying too much about different things: 0 = Not at all Trouble relaxin = Not at all Being so restless that it is hard to sit still: 0 = Not at all Becoming easily annoyed or irritable: 0 = Not at all Feeling afraid as if something awful might happen: 0 = Not at all Total RUTH ANN-7 score (0-4 normal; 5-9 mild; 10-14 moderate; 15-21 severe): 0 Source: Developed by Drs. Con Shearer, Haley Ortiz, Ciro Manzo and colleagues, with an educational татьяна from [employer]. Review of Systems Const Denies headache(s) Eyes Denies loss of vision ENT Denies vertigo, Denies dizziness, Denies headache(s) and Denies sore throat Card Denies chest pain, Denies leg edema and Denies lightheadedness Resp Denies cough, Denies hemoptysis and Denies wheezing GI Denies abdominal pain, Denies melena, Denies constipation, Denies diarrhea and Denies vomiting Denies dysuria, Denies urinary frequency and Denies urinary urgency Musc Denies arthralgias, Denies joint swelling, Denies numbness and Denies tingling Neuro Denies Abnormal speech present, Denies behavioral changes, Denies vertigo, Denies dizziness, Denies headache(s), Denies loss of vision, Denies memory loss, Denies numbness and Denies tingling Psych Denies anxiety, Denies behavioral changes, Denies depression, Denies memory loss and Denies panic attacks [place]rett/Lymph Denies easy bleeding and Denies easy bruising Aller/Immun Denies wheezing Physical exam (Primary Care) Vital Signs: Last Vital Signs Temp 97.1 F 12/11/24 08:43 Pulse 66 12/11/24 08:43 BP 126/70 12/11/24 08:43 Pulse Ox 96 12/11/24 08:43 Oxygen Delivery Method Room Air 12/11/24 08:43 BMI result Body Mass Index 29.2 Tobacco/Smoking Status: Tobacco use Status Tobacco use date assessed 12/11/24 12/11/24 08:48 Patient Tobacco Use Status Never used Tobacco 12/11/24 08:48 e-Cigarette/Vaping Use Never Used 12/11/24 08:48 PHQ-9: PHQ-9 Score PHQ-9: Total score 0 12/11/24 09:07 Depression Screening Interpretation: Negative Thrive Assessment: Date of Thrive Assessment Date Thrive assessed 10/17/24 12/11/24 08:48 Currently or been in a relationship where the following occur: No concerns reported Const General: healthy appearing, no acute distress, alert and awake Nutritional Appearance: well nourished Orientation/consciousness: oriented to person, oriented to place and oriented to time HENMT Ears: TM's normal bilaterally General nose exam: Normal nasal mucous membranes and turbinates present Eyes Conjunctivae: conjunctivae normal Sclerae: sclerae normal Pupils: Equal, round and reactive pupils present Neck Neck: Yes no lymphadenopathy and Yes no JVD Thyroid: Thyroid normal Carotids: no bruits Resp Effort & Inspection: normal respiratory effort and not tachypneic Auscultation: no crackles, no rales, no rhonchi and no wheezes Cardio Rate: regular rate Rhythm: regular rhythm Heart sounds: no murmurs and normal S1 and S2 GI Palpation (GI): Soft to palpation, nontender, no hepatomegaly and no splenomegaly Auscultation: normal bowel sounds Skin General skin exam: no rashes or lesions noted and dry skin Neuro General: oriented to person, oriented to place and oriented to time Cranial nerves: Yes Equal, round and reactive pupils present Speech: No Abnormal speech present Gait exam (Neuro): Normal gait present Motor exam (neuro): no tremor noted Extrem Right upper extremity: full ROM Left upper extremity: full ROM Right lower extremity: full ROM; no edema Left lower extremity: full ROM; no edema Psych Mental Status: mental status grossly normal Speech and movement: Normal speech and movement present Affect: normal affect Attitude: cooperative Thought process: Normal thought process present Orientation Where are we (state) (county) (town or city) (hospital) (floor)?: town or city Attention & Calculation (CHOOSE ONE) Spell WORLD backwards (DLROW): 5 letters Language Show patient a wristwatch & ask what it is. Repeat for pencil.: watch Score Score: 7 Coding Level of Care Code Est Pt Level 4 (92768) Diagnoses Squamous cell carcinoma of head and neck C44.42 Disorientation R41.0 Altered mental status type: disorientation Primary hypertension I10 Hypertension type: primary hypertension Additional Codes PHQ-9 - 59308 - PHQ-9 Billing: Yes ([id number]) Assessment & Plan Assessment & Plan (1) Squamous cell carcinoma of head and neck: Code(s): C44.42 - Squamous cell carcinoma of skin of scalp and neck Category: Medical Plan: Post-operative care following Mohs surgery includes monitoring the surgical site and planning for stitch removal. (2) Altered mental status: Code(s): R41.82 - Altered mental status, unspecified Category: Medical Qualifiers: Altered mental status type: disorientation Qualified Code(s): R41.0 - Disorientation, unspecified Plan: The patient is scheduled for a follow-up with a neurologist to further evaluate cognitive impairment. A PET scan is planned to investigate potential underlying malignant causes. The patient will start a trial of aricept to assess its efficacy in slowing cognitive decline. (3) HTN (hypertension): Code(s): I10 - Essential (primary) hypertension Category: Medical Qualifiers: Hypertension type: primary hypertension Qualified Code(s): I10 - Essential (primary) hypertension Plan: The patient should continue with the current antihypertensive medication regimen as it effectively maintains blood pressure within normal limits. Goal blood pressures to be below 140/90 Orders: Orders PET CT fusion skull to thigh Today C44.42 - Squamous cell carcinoma of skin of scalp and neck Medications: New donepezil 5 mg PO BEDTIME 30 tabs 1RF 30 days R41.82 - Altered mental status, unspecified
--- OUTSIDE RECORDS SUMMARY | 2024-12-11 08:42 | XMS_ITS ---
Author Name Tristin Swan Address Unknown Organization [facility] Care Team Providers Care Community Relations Police Lieutenant Name Role Phone Unavailable Primary Care Physician Unavailab le History Of Present Illness This is a 64 year old male who is an established patient being seen for a chief complaint of a squamous cell carcinoma, located on the left superior parietal scalp. The squamous cell was biopsied 10/18/24. The growth is not healing, scaly, and raised and severe in severity. He has had this growth for weeks. Pertinent history includes: sunburns. Pertinent negatives include: no history of immunosuppression and no history of organ transplantation. This skin lesion has been treated with: biopsy. Hepresents today for: evaluation and management and Mohs. Medications Medication Generic Name RxNorm Strength Strength Unit Route Dose Dose Form Frequency Date Started Date Ended Status Indication Sig Efudex fluorour acil 832663 5 % Topica l 1 cream BID 10/28/19 24 suspend ed Appl y a thin laye r to pink scal y area s on the face and ears (spo t nikole tmen t), BID unti l red and nae kyle (usu ally 2-6 week s). Once red and nae kyle, disc onti nue use. imiquimod imiquimo d 163728 3.75 % Topica l cream in meter ed-do se pump 10/31/19 24 suspend ed Appl y a thin laye r to liane n affe cted skin nigh tly for 2 week s. Allo w crea m to surya in on the skin for at leas t 8 hrs befo re rins ing off with gent le soap and warm wate r. imiquimod imiquimo d 335774 5 % Topica l cream in packe t 11/02/19 24 suspend ed Appl y a thin laye r to liane n affe cted skin 2 time s per week befo re bed, for one alfredo h. Allo w to sit on skin for 8 hour s befo re rins ing off with gent le soap and wate r. Advil ibuprofe n 200 mg Oral 1 table t QD active amlodipine 445516 10 mg Oral 1 table t QD active hydrochloro thiazide 336751 25 mg Oral 1 table t QD active Problems Problem Code Type Status Date of Diagnosis Da te of Resolution Squamous cell carcinoma of head and neck (disorder) 653921312(SN OMED) Diagnosis active 12/07/2024 Neoplasm of uncertain behavior of skin (disorder) 55782172(SNO MED) Diagnosis active 10/18/2024 History of skin and/or subcutaneous tissue disease (situation) 798586697870 105(SNOMED) Diagnosis active 02/22/2024 Actinic keratosis (disorder) (SN OMED) Diagnosis active 12/21/2023 Disorder of cardiovascular system (disorder) 14691015(SNO MED) Diagnosis active 12/21/2023 Disorder of pigmentation (disorder) 797971636(SN OMED) Diagnosis active 12/21/2023 Skin changes due to chronic exposure to non-ionizing radiation (disorder) 630592150(SN OMED) Diagnosis active 12/21/2023 Melanocytic nevus of trunk (disorder) 921747375(SN OMED) Diagnosis active 12/21/2023 Patient encounter status (finding) 918029205(SN OMED) Diagnosis active 12/21/2023 Actinic keratosis (disorder) (SN OMED) Diagnosis active 10/28/2023 Increased blood pressure (finding) 98529103(SNO MED) Problem active Actinic keratosis (disorder) (SN OMED) Problem active Results No data Encounters Service provided at [facility], [address] [place] [address], [address], [place], [place] [id number]. Office phonenumber is [phone]. Office fax number is [phone]. Encounter Diagnosis Location Date / Time Type Well Differentiated Squamous Cell Carcinoma (C44.42)Well Differentiated Squamous Cell Carcinoma (C44.42) [facility] 12/07/2024 11:45:00 [place] NI Reason For Referral No data Procedures Procedure Date Documentation of current medications (pr ocedure) 12/07/2024 12:00 am UTC Mohs surgery (procedure) 12/07/2024 12:0 0 am [place] Documentation of current medications (pr ocedure) 10/18/2024 12:00 am [place] Shave biopsy (procedure) 10/18/2024 12:0 0 am [place] Documentation of current medications (pr ocedure) 03/26/2024 12:00 am [place] Documentation of current medications (pr ocedure) 12/21/2023 12:00 am [place] Documentation of past medical history (p rocedure) Documentation of past medical history (p rocedure) Documentation of past medical history (p rocedure) Documentation of past medical history (p rocedure) Documentation of past medical history (p rocedure) Documentation of past medica l history (procedure) Knee surgery 40 yrs ago Review Of Systems Provider reviewed on Dec 07, 2024.A focused review of systems was performed including Allergic / Immunologic, Cardiovascular, Constitutional / Symptom, ENT and Mouth, Eyes, Hematologic / Lymphatic, Integumentary, Neurological, Psychiatric, and Respiratory.No Problems With Healing, No Problems With Scarring (hypertrophic Or Keloid), No Problems With Bleeding, No Immunosuppression, No Chest Pain, No Fever Or Chills, No Sore Throat, No Blurry Vision, No Headaches, No Seizures, No Shortness Of Breath, And No Anxiety. Assessment 1.Well Differentiated Squamous Cell Carcinoma, Status: Inadequately ControlledConsultation for MohsSurgery2.Well Differentiated Squamous Cell Carcinoma, Status: Inadequately ControlledMohs Surgery: left superior parietal scalp; Consent Type - Consent (Scalp Lesion); Eye Shield Used - No; Surgeon Pe rforming Repair - Tristin Swan; Number of Stages - 1; Primary Defect Length in cm (Final Defect Size - Required for Flaps/Grafts) - 1.5; Primary Defect Width in cm (Final Defect Size - Requiredfor Flaps/Grafts) - 1.5; Repair type - Complex Repair; Postop Diagnosis - same. Plan of Care Code Detail Instructions 340161 imiquimod 5 % topical cream pack et Apply a thin layer to clean affected skin 2 times per week before bed, for one month. Allow to sit on skin for 8 hours before rinsing off with gentle soap and water. 592461 imiquimod 3.75 % top ical cream in a pump Apply a thin layer to clean affected skin nightly for 2 weeks. Allow cream to remain on the skin for at least 8 hrs before rinsing off with gentle soap and warm water. 255710 Efudex 5 % topical cream Apply a thin layer to pink scaly areas on the face and ears (spot treatment), BID until red and crusted (usually 2-6 weeks). Once red and crusted, discontinue use. Instructions No Data Social History Code Activity Start Date End Date [id number] (SNOMED) Never smoker Sex male Sexual orientation Don't Know Gender identity Unspecified Vital Signs Vital Sign Measurement Date Recorded Heart Rate 66 /min TueDec 07 12:32 :17 [facility] 2024 Systolic Blood Pressure 150 mm[Hg] TueDec 07 12:32:17 [facility] 2024 Diastolic Blood Pressure 80 mm[Hg] TueDec 07 12:32:17 [facility] 2024 Heart Rate 51 /min TueDec 07 13:03 :32 [facility] 2024 Systolic Blood Pressure 116 mm[Hg] TueDec 07 13:03:32 [facility] 2024 Diastolic Blood Pressure 62 mm[Hg] TueDec 07 13:03:32 [facility] 2024
--- OUTSIDE RECORDS SUMMARY | 2024-12-11 08:42 | XMS_ITS | Patient Health Record ---
Author Organization [facility] Address [address] [place] [address] Care Team Providers Care Ui Ux Engineer Name Role Phone Tahmina Streeter Unavailable [phone] Allergies No Known Allergies Reason For Referral [...] 10/11/2024 Encounters [facility]counter [facility] [address] [facility]/11/2024 Tahmina Streeter Tinea unguium B35.1 ; Tinea pedis of both feet B35.3 ; Pain in right toe(s) M79.674 and Pain in left toe(s) M79.675 [facility] [address] [place] [address] 11/05/2024 Tahmina Streeter Tinea pedis of both feet B35.3 Assessments Encounter Date Diagnosis (ICD Code) Assessment Notes Treatment Notes Treatment Clinical Notes Section Notes 10/11/2024 Tinea unguium (ICD-10 - B35.1) 10/11/2024 Tinea pedis of both feet (ICD-10 - B35.3) 11/05/2024 Tinea pedis of both feet (ICD-10 - B35.3) 10/11/2024 Pain in right toe(s) (ICD-10 - M79.674) 10/11/2024 Pain in left toe(s) (ICD-10 - M79.675) Plan Of Treatment Next Appt Details Provider Name:Tahmina Ruvalcaba Enrico heather, 01/17/2025 01:30:00 PM, [address] [place], [address], Insurance Providers Payer Name Payer Address Payer Phone Subscriber Number Group Number Insured Name Patient Relationship to Insured Coverage Start Date Coverage End Date [facility] All Others [address] [place] [address] [phone] [id number] Bob Connell Self - patient is the insured Medical (General) History Medical History History ICD Code High Blood Pressure Surgical History Surgery Date(Month/Year) knee surgery 09/25/1977 knee surgery 09/25/1978 cartilage removal 09/25/1977 cartilage removal 09/25/1978 tooth removed
[2024-12-11 08:43] VITALS: BP 126/70; PULSE 66; TEMP 36.2; O2SAT 96; BMI 29.2
== END 2024-12-11 09:16 | disposition home or self-care (01) ==
LOC: HO.HMCH 08:31
PROVIDERS: PCP Physician Assistant; Visit Provider Physician Assistant
DX: C44.42 Squamous cell carcinoma of skin of scalp and neck (principal); R41.0 Disorientation, unspecified; I10 Essential (primary) hypertension

== ENCOUNTER → 2024-12-11 08:30 | Outpatient (BNVA) | payer BC, SELFPAY | PROVIDERS: PCP Physician Assistant; Visit Provider Physician Assistant | DX: I10 Essential (primary) hypertension (principal); C44.42 Squamous cell carcinoma of skin of scalp and neck; R41.0 Disorientation, unspecified | CPT/HCPCS: 96127 ==

== ENCOUNTER 2024-12-20 10:44 | Outpatient (AMB) | payer BC, SELFPAY ==
--- NOTE | 2024-12-20 10:46 | MHC.OFFVIS ---
Vital Signs 12/20/24 10:47 Height 5 ft 8 in Weight 190 lb BMI 28.9 BP 132/70 Blood Pressure Location Rt brachial Position Sitting Pulse 62 Pulse Source Pulse Oximeter Pulse Oximetry (%) 98 Oxygen Delivery Method Room Air Intake Visit Reasons: INP-Disorientation Intake Note: Disorientation Shipping Track Supervisor Required: No Accompanied by: Spouse Allergies lisinopril Adverse Reaction (Intermediate, Verified 12/20/24 10:46) Frequent stool Medication List - Last Reconciled 12/20/24 by Taryn Welch MD acetaminophen 500 mg PO Q6H PRN amlodipine 10 mg PO DAILY 30 days bisacodyl (Dulcolax (bisacodyl)) 20 mg (4 x 5 mg) PO ONCE 1 day donepezil 5 mg PO BEDTIME 30 days hydrochlorothiazide 25 mg PO DAILY 90 days ketoconazole 2% appl topical BID polyethylene glycol 3350 (Miralax) 17 grams PO DAILY 1 day HPI Comments Details: 64y/o Left handed male comes for evaluation of cognitive issues.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 According to his she noticed some cognitive issues for past 9 mths. He was getting lost in parking lot , difficulty placing take out order , trouble reading etc, misplaces things around the house, forgets conversations etc. No mood disorder. He denies any sleep issues. 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 Cognitive needs: No Hearing needs: No Vision needs: No Review of Systems Neuro Reports confusion Psych Reports confusion Physical Exam Vital Signs: Last Vital Signs Pulse 62 12/20/24 10:47 BP 132/70 12/20/24 10:47 Pulse Ox 98 12/20/24 10:47 Oxygen Delivery Method Room Air 12/20/24 10:47 BMI result Body Mass Index 28.9 Const General: cooperative, healthy appearing, comfortable, no acute distress and confusion Nutritional Appearance: average body habitus Orientation/consciousness: oriented to person, oriented to place, oriented to time and confusion Eyes Pupils: Equal, round and reactive pupils present Neuro Other: MOCA 14/30 Decreased facial expression and blink General: oriented to person, oriented to place, oriented to time and confusion Cranial nerves: Yes Equal, round and reactive pupils present, Yes Bilaterally intact EOM present, Yes Nystagmus not present, Yes Normal facial strength present, Yes Midline tongue present, Yes Symmetric palate elevation present and Yes Ability to bilaterally elevate shoulders present Cognition (Neuro): abnormal cognition Gait exam (Neuro): Normal gait present Motor exam (neuro): 5/5 motor strength present throughout and Normal motor muscle tone present throughout Deep tendon reflexes (DTR's): Right triceps reflex intensity grade: 1+, Left triceps reflex intensity grade: 1+, Rt Biceps (C5, C6): 1+, Left biceps reflex intensity grade: 1+, Right brachioradialis reflex intensity grade: 1+, Left brachioradialis reflex intensity grade: 1+, Right patellar reflex intensity grade: 1+ and Left patellar reflex intensity grade: 1+ Coordination: aroecx-hu-zsty test normal Assessment & Plan Assessment & Plan (1) Cognitive disorder: Comment: rapid progression , dementia R/o atypical etiologies Code(s): F09 - Unspecified mental disorder due to known physiological condition Category: Medical Plan MRI brain reviewed Labs- Vit B 12 TSH DOUGLAS ESR EEG WILL ORDER LP after labs STart donepezil 5 mg qd Neuropsych testing Orders: Orders TSH reflex Free T4 Today F09 - Unspecified mental disorder due to known physiological condition Comprehensive Met. Panel Today F09 - Unspecified mental disorder due to known physiological condition Complete Blood Count Auto Diff Today F09 - Unspecified mental disorder due to known physiological condition PET Brain beta amyloid Today F09 - Unspecified mental disorder due to known physiological condition, R41.0 - Disorientation, unspecified EEG electroencephalogram Today F09 - Unspecified mental disorder due to known physiological condition Vitamin B12 and Folate Today F09 - Unspecified mental disorder due to known physiological condition Vitamin D 25-OH (D2 and D3) Today F09 - Unspecified mental disorder due to known physiological condition DOUGLAS Reflex Titer and Pattern Today F09 - Unspecified mental disorder due to known physiological condition Erythrocyte Sedimentation Rate Today F09 - Unspecified mental disorder due to known physiological condition Lyme IgG/IgM w/reflex to WB Today F09 - Unspecified mental disorder due to known physiological condition Referrals Neuropsychiatry Referral F09 - Unspecified mental disorder due to known physiological condition Coding Level of Care Code New Pt Level 4 (77436) Complex EM visit Add On G2211 Diagnoses Cognitive disorder F09 MOCA Assessment Visuospatial/Executive Was patient able to complete Number to Letter matching?: No Was the patient able to copy the cube?: No Clock: Contour: Yes Clock: Numbers: Yes Clock: Hands: No Naming Was the patient able name the Lion?: Yes Was the patient able to name the Rhinoceros?: Yes Was the patient able to name the Camel?: Yes Memory 1st Trial - Select the words the patient was able to remember: Face, Velvet, Advent, Erin and Red 2nd Trial - Select the words the patient was able to remember: Face, Velvet, Advent, Erin and Red Attention Was the patient able to repeat [2 1 8 5 4] in forward order?: Yes Was the patient able to repeat [7 4 2] in backward order?: Yes Was the patient able to identify the A's with <2 errors?: No Serial 7 subtraction starting at 100 result: 0 correct (0 points) Language Select the phrases the patient was able to repeat: I only know that Jaydon is the one to help today and The cat always hid under the couch when dogs were in the room Was the patient able to name more than 11 words that start with the letter F?: No Abstraction Select all that the patient was able to find the similarity: Train - Bicycle and Watch - Ruler Orientation Select the following items that the patient knew: Month, Year, Day, Place and City
[2024-12-20 10:47] VITALS: BP 132/70; PULSE 62; O2SAT 98; BMI 28.9
--- OUTSIDE RECORDS SUMMARY | 2024-12-20 12:20 | XMS_ITS | Patient Health Record ---
Author Organization [facility] Address [address] [place] [address] Care Team Providers Care Appeals Officer Name Role Phone Tahmina Streeter Unavailable [phone] Allergies No Known Allergies Reason For Referral [...] 10/11/2024 Encounters Encounter Location Date Provider Diagnosis [facility] [address] 10/11/2024 Tahmina Streeter Tinea unguium B35.1 ; Tinea pedis of both feet B35.3 ; Pain in right toe(s) M79.674 and Pain in left toe(s) M79.675 [facility] [address] [place] [address] 11/05/2024 Tahmina Streeter Tinea pedis of both [...] Ruvalcaba Enrico heather, 01/17/2025 01:30:00 PM, [address] [place], [address], Insurance Providers Payer Name Payer Address Payer Phone Subscriber Number Group Number Insured Name Patient Relationship to Insured Coverage Start Date Coverage End Date [facility] [employer] [address] [place] [address] [phone] [id number] Bob Connell Self - patient is the insured Medical (General) History Medical History History ICD Code High Blood Pressure Surgical History Surgery Date(Month/Year) knee surgery 09/25/1977 knee surgery 09/25/1978 cartilage removal 09/25/1977 cartilage removal 09/25/1978 tooth removed
== END 2024-12-20 11:26 | disposition home or self-care (01) ==
LOC: HO.HSMS 10:44
PROVIDERS: Visit Provider Psychiatry & Neurology Neurology
DX: R41.89 Other symptoms and signs involving cognitive functions and awareness (principal)
CPT/HCPCS: 99204

== ENCOUNTER 2024-12-26 11:57 | Outpatient (REF) | payer BC, SELFPAY ==
[2024-12-26 12:17] LABS: MANUAL DIFF FLAG NO
[2024-12-26 12:36] LABS: Hematocrit 41.5 % (42.0-52.0); Hemoglobin 15.3 g/dl (14.0-18.0); Imm Gran Abs Auto 0.01 X10*3/uL (0.00-0.03); Imm Gran Pct Auto 0.2 % (0.0-0.4); Lymphocytes Absolute Auto 1.3 X10*3/uL (1.2-4.9); Mean Corpuscular HGB Conc 36.9 g/dl (31.0-36.0); Mean Corpuscular Hemoglobin 31.4 pg (27.0-33.0); Mean Corpuscular Volume 85.2 fL (80.0-98.0); NRBC Abs Auto 0.000 X10*3/uL (0.0-0.012); NRBC Pct Auto 0.0 /100WBC (0.0-0.2); Platelet Count 189 X10*3/uL (160-400); Red Blood Count 4.87 X10*6/uL (4.60-5.80); White Blood Count 5.5 X10*3/uL (4.8-10.8)
[2024-12-26 13:17] LABS: Alanine Aminotransferase 34 U/L (0-40); Albumin Level 4.8 g/dL (3.5-5.0); Alkaline Phosphatase 76 U/L (39-117); Anion Gap 11 (12-20); Aspartate Amino Transferase 30 U/L (5-37); Blood Urea Nitrogen 11 mg/dL (9-16); Calcium 10.0 mg/dL (8.4-10.2); Carbon Dioxide 29 mmol/L (22-29); Chloride 106 mmol/L (96-108); Estimated Glomerular Filt Rate > 60; Potassium 3.8 mmol/L (3.3-5.1); Sodium 142 mmol/L (135-145); Total Protein 7.3 g/dL (6.5-8.0)
[2024-12-26 13:37] LABS: Folate 13.3 ng/mL (> or = 4.0); Vitamin B12 476 pg/mL (200-900)
--- OUTSIDE RECORDS SUMMARY | 2024-12-26 15:11 | XMS_ITS | Patient Health Record ---
Author Organization [facility] Address [address] [place] [address] Care Team Providers Care Modeling Analyst Name Role Phone Tahmina Streeter Unavailable [phone] Allergies No Known Allergies Reason For Referral [...] 10/11/2024 Encounters Encounter Location Date Provider Diagnosis [facility] [address] 10/11/2024 Tahmina Streeter Tinea unguium B35.1 ; Tinea pedis of both feet B35.3 ; Pain in right toe(s) M79.674 and Pain in left toe(s) M79.675 [facility] [address] [address] 12/26/2024 Tahmina Streeter [facility] [address] [address] 11/05/2024 Tahmina Streeter Tinea pedis of both [...] Of Treatment Next Appt Details Provider Name:Tahmina romero, 01/17/2025 01:30:00 PM, [address] [facility], [place], [address], Insurance Providers Payer Name Payer Address Payer Phone Subscriber Number Group Number Insured Name Patient Relationship to Insured Coverage Start Date Coverage End Date [facility] [address] [place] [address] [phone] [id number] Bob Connell Self - patient is the insured Medical (General) History Medical History History ICD Code High Blood Pressure Surgical History Surgery Date(Month/Year) knee surgery 09/25/1977 knee surgery 09/25/1978 cartilage removal 09/25/1977 cartilage removal 09/25/1978 tooth removed
[2024-12-27 09:39] LABS: Lyme Abs Screen <0.90 index
[2024-12-30 15:08] LABS: Vitamin D 25-OH, D2 <4 ng/mL; Vitamin D 25-OH, D3 42 ng/mL; Vitamin D 25-OH, Total 42 ng/mL (30-100)
[2024-12-31 14:13] LABS: Anti Nuclear Antibody Screen NEGATIVE (NEGATIVE)
== END 2024-12-26 11:58 | disposition home or self-care (01) ==
LOC: HO.LAB 11:57
PROVIDERS: PCP Physician Assistant; Visit Provider Psychiatry & Neurology Neurology
DX: Z01.84 Encounter for antibody response examination (principal); F09 Unspecified mental disorder due to known physiological condition; Z13.29 Encounter for screening for other suspected endocrine disorder; Z13.21 Encounter for screening for nutritional disorder
CPT/HCPCS: 36415; 80053; 82306; 82607; 82746; 84443; 85025; 85652; 86038; 86617; 86618

== ENCOUNTER 2025-01-21 13:03 | Outpatient (AMB) | payer BC, SELFPAY ==
--- OUTSIDE RECORDS SUMMARY | 2025-01-17 09:30 | XMS_ITS ---
Author Organization [facility] Maria Elena castellon [place] Address [address] [place] [address] Care Team Providers Care Lion Tamer Name Role Phone Tahmina Streeter Unavailable [phone] Allergies No Known Allergies REASON FOR VISIT Painful nail(s) aggravated by shoes causing difficulty standing/walking Medications Medication SIG (Take, Route, Frequency, Duration) Notes Start Date End Date Status Amoxicillin temp Active Amlodipine & Diet Manage Prod Active Ciclopirox Olamine 0.77 % 1 application Externally Twice a day; Duration: 30 days Active Ketoconazole 2 % 1 application Apply a thin layer of cream externally Twice a day to the skin on feet including between the toes; Duration: 30 days 10/11/2024 Active Social History Tobacco Use: Social History [...] No Points 0 Interpretation Negative Vital Signs Height 5ft8in in 01/17/2025 Weight 181 lbs 01/17/2025 BMI 27.52 kg/m2 01/17/2025 Blood pressure systolic 140 mm Hg 01/18/20 25 Blood pressure diastolic 62 mm Hg 025 Encounters Encounter Location Date Provider [facility] [place] [address] 01/17/2025 Tahmina Perica Pain in right toe(s) M79.674 ; Onychomycosis B35.1 and Pain in left toe(s) M79.675 Assessments Encounter Date Diagnosis (ICD Code) Assessment Notes Treatment Notes Treatment Clinical Notes Section Notes 01/17/2025 Pain in right toe(s) (ICD-10 - M79.674) 01/17/2025 Onychomycosis (ICD-10 - B35.1) 01/17/2025 Pain in left toe(s) (ICD-10 - M79.675) Plan Of Treatment Next Appt Details Follow Up: 3 Months, Reason: Provider Name:Tahmina romero, 04/25/2025 03:15:00 PM, [address] [facility], [place], [address], Procedure Notes * Category Sub-Category Detail Notes Debride Nail 6-10 Nail debridement Due to the cl inical pathology outlined in the exam findings, performance of this nail treatment is medically necessary as its management by an unskilled/untrained nonprofessional would put this patients foot and overall health at risk. Therefore, debridement to affected nail(s), as described in exam ( TA, T1, T2, T3, T4, T5, T6, T7, T8, T9, ), was performed exclusively by the physician of record to reduce/remove overall nail length, girth, thickness, subungual debris, and necrotic tissue, by manual and/or electrical means through the use of a nail nipper and/or dremel-type tap grinder, to a more viable healthy nail plate or bed tissue 6-10 nails in total. Silver nitrate was used for any petechial bleeding as necessary. Definitive antifungal treatment options, both pharmaceutical and surgical, have been reviewed and discussed with the patient. The patient solely prefers the use of intermittent/as needed professional debridement services for their nail condition and understands the need for additional periodic treatments to maintain effectiveness in symptomatic relief - 76348 Progress Notes * Bob CONNELLDOB:1960 (64 yo M)Acc No.[id number]:01/17/2025 Progress Note Patient: Bob SALGUERO Provider: Margarita Streeter DPM :1960 A ge:64 Y S ex:Male Date:01/17/2025 Address:[address] [place] [address] [address] , [place], [place] Subjective: * Chief Complaints: * P ainful nail(s) aggravated by shoes causing difficulty standing/walking * HPI: P ainful Nails: Pt States Last PCP Visit: D ate: 0 08/25/2023 * ROS: G eneral/Constitutional: Nausea d enies. V omiting d enies. H adeel Thirst d enies. L oss appetite a dmits. C hills d enies. F atigue d enies.?Fever d enies. N ight Sweats d enies. U nexplained weight loss a dmits. U nexplained weight gain d enies. H EENTM: Dentures d enies. D izziness d enies. G lasses/contacts d enies. R etinopathy d enies. B lurred/double vision d enies. T MJ?denies. D ischarge/drainage d enies. I mplants d enies. S ore throat d enies. D ental implants d enies. H martina of hearing d enies. D ifficulty chewing/swallowing/speaking d enies. N ose bleeds d enies. S ore mouth d enies. ? R espiratory: On Oxygen d enies. P neumonia/pleurisy d enies.?Bronchitis d enies. E mphysema d enies. C oughing d enies. C ough blood?denies. S hortness of breath d enies. W heezing d enies. C ardiovascular: Pacemaker d enies. M RAILROAD WHEELS [employer] AX[employer] INSPECTOR d enies. W PW d enies. C HF d enies. H eart attack d enies. S eptal defect d enies. R apid beat d enies. C hest pain d enies. A trial Fib. d enies. M urmur/Palpitations d enies. G astrointestinal: Hemorrhoids d enies. S tomach/Abdominal pain d enies. D ark blood stool d enies. I rritable bowel d enies. C onstipation d enies. D iarrhea d enies. H ematology: Swelling d enies. C lots d enies. V aricose Veins d enies. B ruising d enies. B leeding problem d enies. G enitourinary: Blood urine d enies. F requent/Painfu/urination/bladder control d enies. K idney stones d enies. I nfection (UTI) d enies. N ephropathy d enies. s ex trans dis (STD) d enies. P rostate d enies. M usculoskeletal: Hammertoes d enies. B unions d enies. B ack Pain d enies. M uscle Cramps/ Resting d enies. M uscle cramps / walking d enies.?Generalized aches and pains d enies. W eakness d enies. I nteg.: Rouse d enies. S cars d enies. C orns/calluses?denies. I ngrown nails d enies. P ainful nails d enies. O pen Sores d enies. R ashes d enies. N eurologic: Difficulty sleeping d enies. B rain disorder d enies. N umbness d enies. B alance trouble d enies. C onfusion d enies. F ainting/blackouts d enies. T ingling d enies. T remors d enies. * Medical History: * Surgical History: k nee surgery 09/25/1977knee surgery 09/25/1978cartilage removal 09/25/1977cartilage removal 09/25/1978tooth removed * Hospitalization/Major Diagno stic Procedure: D enies Past Hospitalization * Family History: M other: , diabetes, arthritis, stroke, cancer, foot problems, heart attack, high blood pressure, defects, poor circulation, kidney/liver disease. F ather: , diabetes, arthritis, stroke, cancer, foot problems, heart attack, high blood pressure, defects, poor circulation. * Social History: T obacco Use: T obacco use other than smoking A re you an other tobacco user? N o Tobacco Control (Standard) T obacco use: N onsmoker A dditional Findings: Tobacco non-user C urrent nonsmoker M iscellaneous: C affeine: yes. Children: no. Exercise: golf, bike riding, rowing. Marital status: . 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 D rug/Alcohol: A YOUNG-C (Standard) D id you have a drink containing alcohol in the past year? N o P oints 0 I nterpretation N egative * Medications: T akingAmlodipine & Diet Manage Prod Amoxicillin , Notes to Pharmacist: tempCiclopirox Olamine 0.77 % Cream 1 application Externally Twice a day Ketoconazole 2 % Cream 1 application Apply a thin layer of cream externally Twice a day to the skin on feet including between the toes Medication List reviewed and reconciled with the patientTaking Amlodipine & Diet Manage Prod Taking Amoxicillin , Notes to Pharmacist: tempTaking Ciclopirox Olamine 0.77 % Cream 1 application Externally Twice a day Taking Ketoconazole 2 % Cream 1 application Apply a thin layer of cream externally Twice a day to the skin on feet including between the toes Medication List reviewed and reconciled with the patient * Allergies: N .K.D.A.yes[Allergies Verified] Objective: * Vitals: H t: 5ft8in, Wt:181, BMI:27.52, Shoe size: 10, BP:140/62mm Hg, Ht-cm: 172.72 cm, Wt-k.1 kg. * Examination: N ails: NAILS are: E longated, overgrown, dystrophic, lytic, greater than 3mm thick, discolored and friable with crumbly malodorous subungual debris, with pain on palpation , TA, T1, T2, T3, T4, T5, T6, T7, T8, T9. Assessment: * Assessment: 1. P ain in right toe(s) - M79.674 2 . O nychomycosis - B35.1 (Primary)? 3. P ain in left toe(s) - M79.675 Plan: * Treatment: * Procedures: D mariia Nail 6-10: Nail debridement D ue to the clinical pathology outlined in the exam findings, performance of this nail treatment is medically necessary as its management by an unskilled/untrained nonprofessional would put this patients foot and overall health at risk. Therefore, debridement to affected nail(s), as described in exam ( TA, T1, T2, T3, T4, T5, T6, T7, T8, T9, ), was performed exclusively by the physician of record to reduce/remove overall nail length, girth, thickness, subungual debris, and necrotic tissue, by manual and/or electrical means through the use of a nail nipper and/or dremel- type tap grinder, to a more viable healthy nail plate or bed tissue 6-10 nails in total. Silver nitrate was used for any petechial bleeding as necessary. Definitive antifungal treatment options, both pharmaceutical and surgical, have been reviewed and discussed with the patient. The patient solely prefers the use of intermittent/as needed professional debridement services for their nail condition and understands the need for additional periodic treatments to maintain effectiveness in symptomatic relief - [id number]. * Procedure Codes: 1 1721 DEBRIDE NAIL, 6 OR MORE * Preventive Medicine: Screening/Special Tests: F all Risk Screening: N o falls in the past year F ALLS: Screening for Future Fall Risk Have you had two or more falls in the past year? N o Have you had any falls with injury in the past year? N o * Follow Up: 3 Months * Images: * Sign off status: Completed true * Provider: Margarita Streeter DPM Date: Generated for Amish thomas/Finesse/Trevin on: 03:24 PM EDT History and Physical Notes * HPI (History of Present Illness) Category Sub-Category Detail Notes Category Not es Painful Nails Pt States Last PCP Visit: Date:: 08/25/2023 Examination Category Sub-Category Detail Notes Category Not es Nails NAILS are: Elongated, overg rown, dystrophic, lytic, greater than 3mm thick, discolored and friable with crumbly malodorous subungual debris, with pain on palpation , TA, T1, T2, T3, T4, T5, T6, T7, T8, T9
--- NOTE | 2025-01-21 13:06 | MHC.PC.OV ---
Vital Signs 01/21/25 13:07 Height 5 ft 8 in Weight 184 lb 2 oz BMI 28.0 BP 140/60 H Blood Pressure Location Lt brachial Position Sitting Respiration 18 Pulse 66 Pulse Source Pulse Oximeter Temp 97.1 F Temp Source Temporal Artery Scan Pulse Oximetry (%) 97 Oxygen Delivery Method Room Air Intake Visit Reasons: 6 week follow up Visiting Professor Required: No Heel Sander: Present Accompanied by: Spouse Allergies lisinopril Adverse Reaction (Intermediate, Verified 12/20/24 10:46) Frequent stool Tobacco use date assessed: 01/21/25 Fall risk assessment: No Falls in past year Last assessed Fall Risk: 01/21/25 Dental Screening Dental Screen Date: 10/17/24 HPI 6 week follow up HPI Details Patient is a 64-year-old male here today for follow-up visit Confusion: Patient's brain MRI normal. Has followed up with Neurology whom will be sending patient for neuropsychiatric evaluation. Will continue with benazepril for now. 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 Has recently started Aricept 5 mg and has been noting sleep disruption. He has been out of work as he has not been able to cognitively handled his job. He has been out on short-term disability which may need to be extended. He also has somewhat of balance issues though unclear if this is related to his knee arthritis as well. Family is concerned as they have seen a decline over the last 2-3 months in patient's cognition. The patient has an upcoming appointment with a neurologist for further assessment.. PLAN: Will plan for PET scan and an EEG to evaluate for epileptic activity. * Squamous cell carcinoma of the scalp: Recently underwent a Mohs procedure with the [facility]. Will try to get records of patient's biopsy of the scalp. Hypertension: Patient's blood pressure slightly elevated today in office. Continues on hydrochlorothiazide and amlodipine with good effect. He has lost significant amount of weight somewhat intentionally. 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 Cognitive needs: No Hearing needs: No Vision needs: No Questionnaire Thrive Questionnaire Date Thrive assessed: 12/11/24 I am a: Patient What is your living situation today?: I have a steady place to live Within the past 12 months, did the food you bought not last and you didn't have the money to get more?: Never true Within the past 12 months, did you worry whether your food would run out before you got money to buy more?: Never true Do you have trouble paying for medicines?: No Do you have trouble getting transportation to medical appointments?: No Do you have trouble paying your heating and electricity bill?: No Do you have trouble taking care of your child, family member or friend?: No Do you have trouble with day-to-day activities such as bathing, preparing meals, shopping, managing finances, etc.?: No Are you currently unemployed and looking for a job?: No Are you interested in more education?: No Please select the resources that you would like help with: None Currently or been in a relationship where the following occur: No concerns reported THRIVE Score: 0 AUDIT C Alcohol Use Questionnaire (AUDIT-C) 2. How many drinks containing alcohol do you have on a typical day when you are drinking?: 1 or 2 3. How often do you have six or more drinks on one occasion?: Never Total Score: 0 RUTH ANN-7 AMB Questionnaire RUTH ANN-7 Date RUTH ANN - 7 assessed: 10/17/24 Source: Developed by Drs. Con Shearer, Haley Ortiz, Ciro Manzo and colleagues, with an educational татьяна from [employer]. Review of Systems Const Denies headache(s) Eyes Denies loss of vision ENT Denies vertigo, Denies dizziness, Denies headache(s) and Denies sore throat Card Denies chest pain, Denies leg edema and Denies lightheadedness Resp Denies cough, Denies hemoptysis and Denies wheezing GI Denies abdominal pain, Denies melena, Denies constipation, Denies diarrhea and Denies vomiting Denies dysuria, Denies urinary frequency and Denies urinary urgency Musc Denies arthralgias, Denies joint swelling, Denies numbness and Denies tingling Neuro Denies Abnormal speech present, Denies behavioral changes, Denies vertigo, Denies dizziness, Denies headache(s), Denies loss of vision, Denies memory loss, Denies numbness and Denies tingling Psych Denies anxiety, Denies behavioral changes, Denies depression, Denies memory loss and Denies panic attacks [place]rett/Lymph Denies easy bleeding and Denies easy bruising Aller/Immun Denies wheezing Physical exam (Primary Care) Vital Signs: Last Vital Signs Temp 97.1 F 01/21/25 13:07 Pulse 66 01/21/25 13:07 Resp 18 01/21/25 13:07 BP 140/60 H 01/21/25 13:07 Pulse Ox 97 01/21/25 13:07 Oxygen Delivery Method Room Air 01/21/25 13:07 BMI result Body Mass Index 28.0 Tobacco/Smoking Status: Tobacco use Status Tobacco use date assessed 01/21/25 01/21/25 13:21 Patient Tobacco Use Status Never used Tobacco 01/21/25 13:09 e-Cigarette/Vaping Use Never Used 01/21/25 13:09 Thrive Assessment: Date of Thrive Assessment Date Thrive assessed 12/11/24 01/21/25 13:09 Currently or been in a relationship where the following occur: No concerns reported Const General: healthy appearing, no acute distress, alert and awake Nutritional Appearance: well nourished Orientation/consciousness: oriented to person, oriented to place and oriented to time [facility] Ears: TM's normal bilaterally General nose exam: Normal nasal mucous membranes and turbinates present Eyes Conjunctivae: conjunctivae normal Sclerae: sclerae normal Pupils: Equal, round and reactive pupils present Neck Neck: Yes no lymphadenopathy and Yes no JVD Thyroid: Thyroid normal Carotids: no bruits Resp Effort & Inspection: normal respiratory effort and not tachypneic Auscultation: no crackles, no rales, no rhonchi and no wheezes Cardio Rate: regular rate Rhythm: regular rhythm Heart sounds: no murmurs and normal S1 and S2 GI Palpation (GI): Soft to palpation, nontender, no hepatomegaly and no splenomegaly Auscultation: normal bowel sounds Skin General skin exam: no rashes or lesions noted and dry skin Neuro General: oriented to person, oriented to place and oriented to time Cranial nerves: Yes Equal, round and reactive pupils present Speech: No Abnormal speech present Gait exam (Neuro): Normal gait present Motor exam (neuro): no tremor noted Extrem Right upper extremity: full ROM Left upper extremity: full ROM Right lower extremity: full ROM; no edema Left lower extremity: full ROM; no edema Psych Mental Status: mental status grossly normal Speech and movement: Normal speech and movement present Affect: normal affect Attitude: cooperative Thought process: Normal thought process present Coding Level of Care Code Est Pt Level 4 (44184) Diagnoses Cognitive disorder F09 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 Thus far workup has been negative. Has upcoming EEG and brain PET scan further eval Has started benazepril 5 mg. Seeming to have a side effect of insomnia. (2) Insomnia: Code(s): G47.00 - Insomnia, unspecified Category: Medical Qualifiers: Insomnia type: drug-induced Qualified Code(s): F19.982 - Other psychoactive substance use, unspecified with psychoactive substance-induced sleep disorder Plan: Patient reports having a hard time sleeping since been started on Aricept. We did discuss sleep hygiene and dkfk-cnz-acydnrl meds to help sleep though would like to try in prescription medication. There is contraindications to hydroxyzine and trazodone with Aricept Will try doxepin 6 mg before bed (3) HTN (hypertension): Code(s): I10 - Essential (primary) hypertension Category: Medical Qualifiers: Hypertension type: primary hypertension Qualified Code(s): I10 - Essential (primary) hypertension Plan: The patient should continue with the current antihypertensive medication regimen as it effectively maintains blood pressure within normal limits. Goal blood pressures to be below 140/90 Medications: New doxepin (Silenor) 6 mg PO BEDTIME 30 tabs 1RF sleep 30 days F19.982 - Other psychoactive substance use, unspecified with psychoactive substance-induced sleep disorder Refilled amlodipine 10 mg PO DAILY 30 tabs 3RF 30 days I10 - Essential (primary) hypertension
[2025-01-21 13:07] VITALS: BP 140/60; PULSE 66; RESP 18; TEMP 36.2; O2SAT 97; BMI 28.0
--- OUTSIDE RECORDS SUMMARY | 2025-01-21 15:24 | XMS_ITS | Patient Health Record ---
Author Organization [facility] Address [address] [place] [address] Care Team Providers Care Administrative Office Specialist Name Role Phone Tahmina Streeter Unavailable [phone] Allergies No Known Allergies Reason For Referral [...] Interpretation Negative Vital Signs Blood pressure diastolic 62 mm Hg 01/17/2025 Height 5ft8in in 01/17/2025 Blood pressure systolic 140 mm Hg 01/17/2025 Weight 181 lbs 01/17/2025 BMI 27.52 kg/m2 01/17/2025 Encounters Encounter [facility] Date [facility] [address] 10/11/2024 Tahmina Perica Tinea unguium B35.1 ; Tinea pedis of both feet B35.3 ; Pain in right toe(s) M79.674 and Pain in left toe(s) M79.675 [facility] [address] [place] [address] 01/17/2025 Tahmina Ferdiannd Pain in right toe(s) M79.674 ; Onychomycosis B35.1 and Pain in left toe(s) M79.675 [facility] [address] 11/05/2024 Tahmina Westona Tinea pedis of both feet B35.3 [facility] [address] 12/26/2024 Tahmina Westona [address] [address] 12/26/2024 Tahmina Streeter Assessments Encounter Date Diagnosis (ICD Code) Assessment Notes Treatment Notes Treatment Clinical Notes Section Notes 10/11/2024 Tinea unguium (ICD-10 - B35.1) 10/11/2024 Tinea pedis of both feet (ICD-10 - B35.3) 01/17/2025 Pain in right toe(s) (ICD-10 - M79.674) 11/05/2024 Tinea pedis of both feet (ICD-10 - B35.3) 01/17/2025 Onychomycosis (ICD-10 - B35.1) 10/11/2024 Pain in right toe(s) (ICD-10 - M79.674) 01/17/2025 Pain in left toe(s) (ICD-10 - M79.675) 10/11/2024 Pain in left toe(s) (ICD-10 - M79.675) Plan Of Treatment Next Appt Details Provider Name:Tahmina romero, 04/25/2025 03:15:00 PM, [address], [place], [address], Insurance Providers Payer Name Payer Address Payer Phone Subscriber Number Group Number Insured Name Patient Relationship to Insured Coverage Start Date Coverage End Date [facility] [employer] Others [address] [place] [address] [phone] [id number] [phone] [id number] Bob Connell Self - patient is the insured Medical (General) History Medical History History ICD Code High Blood Pressure Surgical History Surgery Date(Month/Year) knee surgery 09/25/1977 knee surgery 09/25/1978 cartilage removal 09/25/1977 cartilage removal 09/25/1978 tooth removed
== END 2025-01-21 13:44 | disposition home or self-care (01) ==
LOC: HO.HMCH 13:03
PROVIDERS: PCP Physician Assistant; Visit Provider Physician Assistant
DX: F09 Unspecified mental disorder due to known physiological condition (principal); F19.982 Other psychoactive substance use, unspecified with psychoactive substance-induced sleep disorder; I10 Essential (primary) hypertension

== ENCOUNTER 2025-01-24 08:53 | Outpatient (REF) | payer BC, SELFPAY ==
--- NOTE | 2025-01-24 08:55 | EEG_ITS ---
Reason for Exam: F09- Unspecified mental disorder due to known physiological condition, Cognitive disorder Roomed Performed:?Outpatient History: hypertension, cognitive disorder, increased confusion over the last few 2 months Medication: doxepin, amlodipine, benazepril Technical description:? Photic stimulation: Completed Hyperventilation:?Completed Behavioral state: Cooperative State of Consciousness: Awake Skull defect: None Sedation: None Handedness: Left Duration of study:? 31min ? ?30 sec This is a 16 channel EEG with an EKG lead. Background EEG rhythm is about 10 hertz 5-50 microvolt posteriorly and lower amplitude fast anteriorly. Photic stimulation does not produce any significant abnormality. Hyperventilation is unremarkable. Cardiac lead does not reveal any significant abnormality. No sharp wave spikes or paroxysmal tendency noted. Impression: Unremarkable EEG. [facility]
== END 2025-01-24 08:54 | disposition home or self-care (01) ==
LOC: HO.NEURO 08:53
PROVIDERS: PCP Physician Assistant; Visit Provider Psychiatry & Neurology Neurology
DX: F09 Unspecified mental disorder due to known physiological condition (principal)
CPT/HCPCS: 95816

== ENCOUNTER → 2025-01-24 08:55 | Outpatient (BNV) | payer BC, SELFPAY | PROVIDERS: PCP Physician Assistant; Visit Provider Psychiatry & Neurology Neurology | DX: G31.84 Mild cognitive impairment of uncertain or unknown etiology (principal) | CPT/HCPCS: 95816 ==

== ENCOUNTER 2025-02-07 09:18 | Outpatient (REF) | payer BC, SELFPAY ==
[2025-02-07 10:28] LABS: HIV Num 1 0.07 S/CO (0.00-0.99)
[2025-02-08 05:49] LABS: Lyme Abs Screen <0.90 index
[2025-02-08 21:52] LABS: Thyroglobulin Antibodies <1 IU/mL (< or = 1)
[2025-02-14 14:39] LABS: Anti Nuclear Antibody Screen NEGATIVE (NEGATIVE)
== END 2025-02-07 09:19 | disposition home or self-care (01) ==
LOC: HO.LAB 09:18
PROVIDERS: PCP Physician Assistant; Visit Provider Psychiatry & Neurology Neurology
DX: Z01.84 Encounter for antibody response examination (principal); Z11.4 Encounter for screening for human immunodeficiency virus [HIV]; F09 Unspecified mental disorder due to known physiological condition
CPT/HCPCS: 36415; 82390; 86038; 86141; 86376; 86592; 86617; 86618; 86800; 87389

== ENCOUNTER 2025-03-08 09:04 | Day surgery (SDC) | payer BC, SELFPAY ==
--- OUTSIDE RECORDS SUMMARY | 2025-02-22 14:19 | XMS_ITS | Patient Health Record ---
Author Organization [facility] Address [address] [facility] [place] [address] Care Team Providers Care Prize Jacker Name Role Phone Tahmina Streeter Unavailable [phone] Allergies No Known Allergies Reason For Referral [...] 01/17/2025 Encounters Encounter Location Date [facility] [address] 10/11/2024 Tahmina Perica Tinea unguium B35.1 ; Tinea pedis of both feet B35.3 ; Pain in right toe(s) M79.674 and Pain in left toe(s) M79.675 [facility] [place] [address] 01/17/2025 Tahmina Ferdinand Pain in right toe(s) M79.674 ; Onychomycosis B35.1 and Pain in left toe(s) M79.[address] [facility] [address] 11/05/2024 Tahmina Perica Tinea pedis of both feet B35.3 [facility] [address] 12/26/2024 Tahmina Perica [facility] [address] 02/06/2025 Tahmina Perica [facility] [address] 12/26/2024 Tahmina Westona Assessments Encounter Date Diagnosis (ICD Code) Assessment Notes Treatment Notes Treatment Clinical Notes Section Notes 10/11/2024 Tinea unguium (ICD-10 - B35.1) 10/11/2024 Tinea pedis of both feet (ICD-10 - B35.3) 11/05/2024 Tinea pedis of both feet (ICD-10 - B35.3) 01/17/2025 Pain in right toe(s) (ICD-10 - M79.674) 10/11/2024 Pain in right toe(s) (ICD-10 - M79.674) 01/17/2025 Onychomycosis (ICD-10 - B35.1) 01/17/2025 Pain in left toe(s) (ICD-10 - M79.675) 10/11/2024 Pain in left toe(s) (ICD-10 - M79.675) Plan Of Treatment Next Appt Details Provider Name:Tahmina romero, 04/25/2025 03:15:00 PM, [facility] [address], [place], [address], Insurance Providers Payer Name Payer Address Payer Phone Subscriber Number Group Number Insured Name Patient Relationship to Insured Coverage Start Date Coverage End Date [facility] Others [address] [place] [address] [phone] [id number] Bob Connell Self - patient is the insured Medical (General) History Medical History History ICD Code High Blood Pressure Surgical History Surgery Date(Month/Year) knee surgery 09/25/1977 knee surgery 09/25/1978 cartilage removal 09/25/1977 cartilage removal 09/25/1978 tooth removed
[2025-03-08] VITALS (7 sets, daily range): BP systolic 132–148; BP diastolic 56–72; PULSE 57–67; RESP 16–18; TEMP 36.6–37.2; O2SAT 94–100; BMI 28.0
--- NOTE | ~2025-03-08 | FL_ITS ---
EXAMINATION: XR LUMBAR PUNCTURE CLINICAL INFORMATION: F09 - Unspecified mental disorder due to known physiological condition COMPARISON: None available. TECHNIQUE: Procedure risks and benefits including bleeding, infection and headache were discussed with the patient and informed consent was obtained. The patient was positioned in the prone position. The back was prepped and draped in the usual sterile fashion. Using fluoroscopic guidance and a 22-gauge spinal needle, access to the spinal canal was obtained. Opening pressure was not elevated. 5mL of clear CSF fluid was removed. FINDINGS: Images demonstrate needle placement at the left L3-4 interlaminar level. FLUOROSCOPY TIME: 22 seconds DOSE AREA PRODUCT: 482 uGy-m2 (microgray-meter squared) FL/FL guided lumbar puncture LP IMPRESSION: Fluoroscopy-guided lumbar puncture. Electronically signed by: Jodie Morgan MD 03/08/2025 01:01 PM [facility]
[2025-03-08 09:48] LABS: MANUAL DIFF FLAG NO
[2025-03-08 09:52] LABS: Hematocrit 43.2 % (42.0-52.0); Hemoglobin 15.4 g/dl (14.0-18.0); Imm Gran Abs Auto 0.01 X10*3/uL (0.00-0.03); Imm Gran Pct Auto 0.2 % (0.0-0.4); Lymphocytes Absolute Auto 1.1 X10*3/uL (1.2-4.9); Mean Corpuscular HGB Conc 35.6 g/dl (31.0-36.0); Mean Corpuscular Hemoglobin 31.6 pg (27.0-33.0); Mean Corpuscular Volume 88.7 fL (80.0-98.0); NRBC Abs Auto 0.000 X10*3/uL (0.0-0.012); NRBC Pct Auto 0.0 /100WBC (0.0-0.2); Platelet Count 206 X10*3/uL (160-400); Red Blood Count 4.87 X10*6/uL (4.60-5.80); White Blood Count 4.5 X10*3/uL (4.8-10.8)
[2025-03-08 09:57] LABS: INTERNATIONAL NORM RATIO 1.0 (0.9-1.1); Prothrombin Time 12.7 SEC (11.2-13.5)
[2025-03-08 10:10] LABS: Anion Gap 13 (12-20); Blood Urea Nitrogen 13 mg/dL (9-16); Calcium 9.9 mg/dL (8.4-10.2); Carbon Dioxide 26 mmol/L (22-29); Chloride 109 mmol/L (96-108); Creatinine Clr Calc Pharmacy 120.8; Estimated Glomerular Filt Rate > 60; Potassium 3.9 mmol/L (3.3-5.1); Sodium 144 mmol/L (135-145)
--- NOTE | 2025-03-08 11:28 | HO.RADPN ---
RADIOLOGY Narrative Narrative: LP performed using 22 g needle. 4 mL of clear CSF fluid removed. Opening pressure not elevated.
[2025-03-08 12:54] LABS: Lymphocytes CSF 74 %; Red Blood Cell CSF 0 MM*3; White Blood Cell CSF 1 MM*3
[2025-03-08 12:55] LABS: Lymphocytes CSF 69 %; Red Blood Cell CSF 3 MM*3; White Blood Cell CSF 8 MM*3
[2025-03-12 20:43] LABS: Lyme IgG CSF Immunoblot NO BANDS DETECTED; Lyme IgM CSF Immunoblot NO BANDS DETECTED
== END 2025-03-08 13:54 | disposition home or self-care (01) ==
PROVIDERS: Radiology Diagnostic Radiology; PCP Physician Assistant; Visit Provider Psychiatry & Neurology Neurology
PROC: 009U3ZZ Drainage of Spinal Canal, Percutaneous Approach (ICD-10-PCS; CPT 62270; principal; 2025-03-08 11:00)
DX: F09 Unspecified mental disorder due to known physiological condition (principal); R41.0 Disorientation, unspecified; R41.9 Unspecified symptoms and signs involving cognitive functions and awareness; Z79.899 Other long term (current) drug therapy; Z88.8 Allergy status to other drugs, medicaments and biological substances; Z98.890 Other specified postprocedural states
CPT/HCPCS: 36415; 62328; 80048; 82945; 84157; 85025; 85610; 86617; 87015; 87070; 87205; 87483; 89051; J2003

== ENCOUNTER → 2025-03-08 11:00 | Outpatient (BNV) | payer BC, SELFPAY | PROVIDERS: PCP Physician Assistant; Visit Provider Radiology Diagnostic Radiology | DX: F09 Unspecified mental disorder due to known physiological condition (principal) | CPT/HCPCS: 62328 ==

== ENCOUNTER 2025-03-19 09:18 | Outpatient (AMB) | payer MEDICARE, BC, SELFPAY ==
--- NOTE | 2025-03-19 09:39 | A.OFFPC_ITS ---
Vital Signs 03/19/25 09:41 Height 5 ft 8 in Weight 188 lb 2 oz BMI 28.6 BP 120/60 Blood Pressure Location Lt brachial Position Sitting Pulse 66 Pulse Source Pulse Oximeter Temp 97.3 F Temp Source Temporal Artery Scan Pulse Oximetry (%) 96 Oxygen Delivery Method Room Air Intake Visit Reasons: 8 week f/u Intake Note: Patient is here to follow up on HTN, Cognitive impairment, Insomina. Disc Inspector Required: No Investment Trader: Present Accompanied by: Spouse Allergies lisinopril Adverse Reaction (Intermediate, Verified 03/19/25 10:01) Frequent stool Medication List - Last Reconciled 03/19/25 by Levi Celeste PA-C acetaminophen 500 mg PO Q6H PRN amlodipine 10 mg PO DAILY 30 days bisacodyl (Dulcolax (bisacodyl)) 20 mg (4 x 5 mg) PO ONCE 1 day donepezil 5 mg PO BEDTIME 30 days doxepin (Silenor) 6 mg PO BEDTIME 30 days hydrochlorothiazide 25 mg PO DAILY 90 days ketoconazole 2% appl topical BID polyethylene glycol 3350 (Miralax) 17 grams PO DAILY 1 day Tobacco use date assessed: 03/19/25 Fall risk assessment: No Falls in past year Last assessed Fall Risk: 03/19/25 Dental Screening Dental Screen Date: 10/17/24 HPI 8 week f/u HPI Details Patient is a 64-year-old male here today for follow-up visit Confusion: Patient's brain MRI normal. . He has undergone lab testing in a lumbar puncture without any significant findings. 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 patient continues on Aricept 5 mg He also has somewhat of balance issues though unclear if this is related to his knee arthritis as well. Family is concerned as they have seen a decline over the last 2-3 months in patient's cognition. The patient has an upcoming appointment with a neurologist for further assessment.. PLAN: Will try to set patient up with a neuropsychiatric evaluation and search for any family support networks that can be given for though stealing with loved ones with dementia ... * Squamous cell carcinoma of the scalp: Recently underwent a Mohs procedure with the [facility]. Will try to get records of patient's biopsy of the scalp. Hypertension: Patient's blood pressure acceptable today in office. Continues on hydrochlorothiazide and amlodipine with good effect. He has lost significant amount of weight somewhat intentionally. 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 Cognitive needs: No Hearing needs: No Vision needs: No Questionnaire Thrive Questionnaire Date Thrive assessed: 12/11/24 I am a: Patient What is your living situation today?: I have a steady place to live Within the past 12 months, did the food you bought not last and you didn't have the money to get more?: Never true Within the past 12 months, did you worry whether your food would run out before you got money to buy more?: Never true Do you have trouble paying for medicines?: No Do you have trouble getting transportation to medical appointments?: No Do you have trouble paying your heating and electricity bill?: No Do you have trouble taking care of your child, family member or friend?: No Do you have trouble with day-to-day activities such as bathing, preparing meals, shopping, managing finances, etc.?: No Are you currently unemployed and looking for a job?: No Are you interested in more education?: No Please select the resources that you would like help with: None Currently or been in a relationship where the following occur: No concerns reported THRIVE Score: 0 RUTH ANN-7 AMB Questionnaire RUTH ANN-7 Date RUTH ANN - 7 assessed: 10/17/24 Source: Developed by Haley Cartwright Angel, Ciro Manzo and colleagues, with an educational татьяна from [employer]. Review of Systems Const Denies headache(s) Eyes Denies loss of vision ENT Denies vertigo, Denies dizziness, Denies headache(s) and Denies sore throat Card Denies chest pain, Denies leg edema and Denies lightheadedness Resp Denies cough, Denies hemoptysis and Denies wheezing GI Denies abdominal pain, Denies melena, Denies constipation, Denies diarrhea and Denies vomiting Denies dysuria, Denies urinary frequency and Denies urinary urgency Musc Denies arthralgias, Denies joint swelling, Denies numbness and Denies tingling Neuro Denies Abnormal speech present, Denies behavioral changes, Reports confusion, Denies vertigo, Denies dizziness, Denies headache(s), Denies loss of vision, Reports memory loss, Denies numbness and Denies tingling Psych Denies anxiety, Denies behavioral changes, Reports confusion, Denies depression, Reports difficulty concentrating, Reports memory loss and Denies panic attacks [place]/Lymph Denies easy bleeding and Denies easy bruising Aller/Immun Denies wheezing Physical exam (Primary Care) Vital Signs: Last Vital Signs Temp 97.3 F 03/19/25 09:41 Pulse 66 03/19/25 09:41 BP 120/60 03/19/25 09:41 Pulse Ox 96 03/19/25 09:41 Oxygen Delivery Method Room Air 03/19/25 09:41 BMI result Body Mass Index 28.6 Tobacco/Smoking Status: Tobacco use Status Tobacco use date assessed 03/19/25 03/19/25 09:46 Patient Tobacco Use Status Never used Tobacco 03/19/25 09:39 e-Cigarette/Vaping Use Never Used 03/19/25 09:39 Thrive Assessment: Date of Thrive Assessment Date Thrive assessed 12/11/24 03/19/25 09:39 Currently or been in a relationship where the following occur: No concerns reported Const General: healthy appearing, no acute distress, alert, awake and confusion Nutritional Appearance: well nourished Orientation/consciousness: oriented to person, oriented to place and confusion HENMT Ears: TM's normal bilaterally General nose exam: Normal nasal mucous membranes and turbinates present Eyes Conjunctivae: conjunctivae normal Sclerae: sclerae normal Pupils: Equal, round and reactive pupils present Neck Neck: Yes no lymphadenopathy and Yes no JVD Thyroid: Thyroid normal Carotids: no bruits Resp Effort & Inspection: normal respiratory effort and not tachypneic Auscultation: no crackles, no rales, no rhonchi and no wheezes Cardio Rate: regular rate Rhythm: regular rhythm Heart sounds: no murmurs and normal S1 and S2 GI Palpation (GI): Soft to palpation, nontender, no hepatomegaly and no splenomegaly Auscultation: normal bowel sounds Skin General skin exam: no rashes or lesions noted and dry skin Neuro Other: DIFFICULTY WITH WORD FINDING DURING EXAM General: oriented to person, oriented to place and confusion Cranial nerves: Yes Equal, round and reactive pupils present Speech: No Abnormal speech present Gait exam (Neuro): Normal gait present Motor exam (neuro): no tremor noted Extrem Right upper extremity: full ROM Left upper extremity: full ROM Right lower extremity: full ROM; no edema Left lower extremity: full ROM; no edema Psych Mental Status: mental status grossly normal Speech and movement: Normal speech and movement present Affect: normal affect Attitude: cooperative Thought process: Normal thought process present Coding Level of Care Code Est Pt Level 4 (14544) Diagnoses Cognitive disorder F09 Primary hypertension I10 Hypertension type: primary hypertension Primary osteoarthritis of both knees M17.0 Laterality: bilateral Osteoarthritis type: primary Impairment of balance R26.89 Assessment & Plan Assessment & Plan (1) Cognitive disorder: Comment: rapid progression , dementia R/o atypical etiologies Code(s): F09 - Unspecified mental disorder due to known physiological condition Category: Medical Plan: Followed by [facility]. Has progressive memory impairment. He is now unable to work. Family is concerned. Family interested in neuropsych evaluation and has been in contact with the [facility] though re-evaluate much too expensive. Thus far workup has been negative including brain MRI, labs and lumbar puncture evaluation. Patient continues on Aricept 5 mg . We addressed the difficulty in scheduling a neuropsychiatric evaluation due to cost, and I informed the patient I would contact the neurologist to arrange a referral to a more accessible facility, such as [facility], and would also investigate [facility] in [place] as another option. (2) HTN (hypertension): Code(s): I10 - Essential (primary) hypertension Category: Medical Qualifiers: Hypertension type: primary hypertension Qualified Code(s): I10 - Essential (primary) hypertension Plan: The patient should continue with the current antihypertensive medication regimen as it effectively maintains blood pressure within normal limits. Goal blood pressures to be below 140/90 (3) Knee osteoarthritis: Code(s): M17.9 - Osteoarthritis of knee, unspecified Category: Medical Qualifiers: Laterality: bilateral Osteoarthritis type: primary Qualified Code(s): M17.0 - Bilateral primary osteoarthritis of knee Plan: Given the reported unsteady gait, I recommended physical therapy to improve balance, strength, and overall safety to reduce fall risk, and the patient agreed to this referral. (4) Impairment of balance: Code(s): R26.89 - Other abnormalities of gait and mobility Category: Medical Plan: As above. Orders: Orders PT Evaluation and Treatment Today M17.9 - Osteoarthritis of knee, unspecified, R26.89 - Other abnormalities of gait and mobility Referrals Neuropsychiatry Referral F09 - Unspecified mental disorder due to known physiological condition
[2025-03-19 09:41] VITALS: BP 120/60; PULSE 66; TEMP 36.3; O2SAT 96; BMI 28.6
--- OUTSIDE RECORDS SUMMARY | 2025-03-19 09:54 | XMS_ITS ---
Author Organization Unknown ENCOUNTERS Encounter Performer Location Date Diagnosis Diagnosis Status Outpatient [address] [address] [id number] ADRIANA *Note: Encounters from your own facility or health system may be excluded. Allergies, Adverse Reactions, Alerts Allergen Type Severity Identification Date lisinopril drug allergy 3 [id number] Medications Name Date Quantity Days Supplied GPI Number
== END 2025-03-19 10:16 | disposition home or self-care (01) ==
PROVIDERS: PCP Physician Assistant; Visit Provider Physician Assistant
DX: F09 Unspecified mental disorder due to known physiological condition (principal); I10 Essential (primary) hypertension; M17.0 Bilateral primary osteoarthritis of knee; R26.89 Other abnormalities of gait and mobility

== ENCOUNTER → 2025-03-19 09:18 | Outpatient (BNVA) | payer BC, SELFPAY | PROVIDERS: PCP Physician Assistant; Visit Provider Physician Assistant | DX: I10 Essential (primary) hypertension (principal); R41.0 Disorientation, unspecified; M17.0 Bilateral primary osteoarthritis of knee; R26.89 Other abnormalities of gait and mobility; F09 Unspecified mental disorder due to known physiological condition | CPT/HCPCS: 99212 ==

== ENCOUNTER 2025-03-26 12:52 | Outpatient (AMB) | payer MEDICARE, BC, SELFPAY ==
--- NOTE | 2025-03-26 13:15 | AM.OFFVISNUR ---
Intake Visit Reasons: PCV-20 vaccine Allergies lisinopril Adverse Reaction (Intermediate, Verified 03/19/25 10:01) Frequent stool Immunizations pneumoc 20-ricky conj-dip cr(PF) 0.5 mL IM syringe Performing Provider: Levi Celeste PA-C [facility] Administered by: Alma Delia Santillan RN on 03/26/25 13:16 Dose Route Admin Location Dispensed Lot Number Expiration Date [facility] [employer] Plater 0.5 mL IM Left Deltoid 0.5 mL [id number] 01/15/26 7386-5402-59 [employer] Total Dispensed Waste 0.5 mL 0 % VIS Given Date VIS Provided VIS Publication Date 03/26/25 Single Vaccine 24 Eligibility Eligibility Date Funding Source Not [facility] Eligible 03/26/25 Private Assessment & Plan Assessment & Plan Orders: Orders Pneumococcal 20 Immunization Today Z23 - Encounter for immunization Coding
== END 2025-03-26 13:18 | disposition home or self-care (01) ==
LOC: HO.HMCH 12:53
PROVIDERS: PCP Physician Assistant; Visit Provider Physician Assistant
DX: Z23 Encounter for immunization (principal)

== ENCOUNTER → 2025-03-26 12:52 | Outpatient (BNVA) | payer MEDICARE, BC, SELFPAY | PROVIDERS: PCP Physician Assistant; Visit Provider Physician Assistant | DX: Z23 Encounter for immunization (principal) | CPT/HCPCS: 90471; 90677 ==

== ENCOUNTER 2025-04-01 09:50 | Day surgery (SDC) | payer MEDICARE, BC, SELFPAY ==
--- OUTSIDE RECORDS SUMMARY | 2025-02-22 14:21 | XMS_ITS ---
Author Organization Unknown ENCOUNTERS Encounter Performer Location Date Diagnosis Diagnosis Status Outpatient [address] [address] [id number] *Note: Encounters from your own facility or health system may be excluded. Allergies, Adverse Reactions, Alerts Allergen Type Severity Identification Date lisinopril drug allergy 3 [id number] Medications Name Date Quantity Days Supplied GPI Number
--- NOTE | 2025-03-27 14:17 | P.CONAN_ITS ---
Documented by User: Kristal Anthony NP 03/27/25 14:20 HPI - Anesthesia Eval Consult details Narrative: 64 yr old male for colonoscopy Progressive cognitive impairment/memory loss: following [facility] neuro, started on donepezil Dec 2024; had unremarkable brain MRI, LP & lab work up; awaiting neuropsych testing. [facility] Active Problems Active Problems: All Active Problems Impairment of balance (Acute) Knee osteoarthritis (Acute) Insomnia (Acute) Cognitive disorder (Acute) Squamous cell carcinoma of head and neck (Acute) Amnesia (Acute) Altered mental status (Acute) Skin lesion (Acute) Confusion (Acute) Class 1 obesity (Acute) Heartburn (Acute) Impaired glucose regulation (Acute) Hypertriglyceridemia (Acute) HTN (hypertension) (Acute) Colon cancer screening (Acute) Borderline high cholesterol (Acute) Screening for diabetes mellitus (DM) (Acute) Past Medical History Medical History Cognitive disorder Family History Family History Father Prostate cancer Surgical History Surgical History History of surgery of head H/O knee surgery Social History Social History Housing: House Are you a primary hospice care consultant to a significant other at home: No Do you presently have visiting nurse or other home services: No Alcohol intake: current Alcohol intake frequency: holidays/special occasions only Alcohol type: beer Patient Tobacco Use Status: Never used Tobacco e-Cigarette/Vaping Use: Never Used Second Hand Smoke Exposure: No Use of substances other than those prescribed or required for medical reasons: No Have you been hit, kicked, punched, or otherwise hurt by someone within the past year? 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 Cognitive needs: No Hearing needs: No Vision needs: No Meds Allergies Allergy/AdvReac Type Severity Reaction Status Date / Time lisinopril AdvReac Intermediate Frequent Verified 03/19/25 10:01 stool Home Medications ?Medication ?Instructions ?Recorded ?Confirmed ?Last Taken ?Type acetaminophen 500 mg capsule 500 mg PO Q6H PRN Elle M oderate 12/20/24 03/19/25 Unknown History ketoconazole 2 % topical cream appl topical BID 03/19/25 Unknown History Documented by User: Desiree Navas MD 04/01/25 10:59 [facility] Past Medical History Medical History Cognitive disorder Family History Family History Father Prostate cancer Family history of problems with anesthesia: No Surgical History Surgical History History of surgery of head H/O knee surgery History of Problems with Anesthesia: No Social History Social History Housing: House Are you a primary hospice care consultant to a significant other at home: No Do you presently have visiting nurse or other home services: No Alcohol intake: current Alcohol intake frequency: holidays/special occasions only Alcohol type: beer Patient Tobacco Use Status: Never used Tobacco e-Cigarette/Vaping Use: Never Used Second Hand Smoke Exposure: No Use of substances other than those prescribed or required for medical reasons: No Have you been hit, kicked, punched, or otherwise hurt by someone within the past year? 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 Cognitive needs: No Hearing needs: No Vision needs: No Meds Allergies Allergy/AdvReac Type Severity Reaction Status Date / Time lisinopril AdvReac Intermediate Frequent Verified 03/19/25 10:01 stool Home Medications ?Medication ?Instructions ?Recorded ?Confirmed ?Last Taken ?Type acetaminophen 500 mg capsule 500 mg PO Q6H PRN Pain, M oderate 12/20/24 03/19/25 Unknown History ketoconazole 2 % topical cream appl topical BID 03/19/25 Unknown History Exam Airway Mallampati Class: II TM Dist: >3cm Neck ROM: Full Partial: Upper Heart: rrr Lungs: cta Assessment and Plan Assessment Anesthesia Assessment: Anesthesia Plan Discussed and Chart Reviewed Final Anesthetic Review Family History of Problems with Anesthesia: No History of Problems with Anesthesia: No NPO: Yes ASA Class: II Final Preanesthetic Review: No Changes in Pt Med Stat, Meds/Allgs Chart Reviewed and Consent Obtained/Reviewed Patient Risk: Low Procedure Risk: Low Anesthetic Plan Anesthetic Plan: MAC: Disposition: Standard PACU
[2025-04-01 10:17] VITALS: BMI 28.6
[2025-04-01 10:25] VITALS: BP 143/76; PULSE 68; RESP 16; TEMP 36.9; O2SAT 95
[2025-04-01] MEDS: Lactated Ringers 1,000 ML 100 ML IVCONT (10:37)
--- NOTE | 2025-04-01 11:01 | MHC.SHP ---
Pre-Procedural Eval Section A - 24 Hr Update-Section A only Date of Service: 04/01/25 The patient is an INPATIENT: No The patient has been examined within 24 hours of the surgical procedure. The History & Physical has been completed within 30 days and I have reviewed it.: No Section B - Complete if H&P > 30 days Chief Complaint: screening Relevant Family History (Specify if Yes): No Relevant Social History: None Present Medications: see Short Stay Collaborative assessment Medical History: Significant History (Hypertension, hypertriglyceridemia) History of Previous Operations: Relevant previous surgery/procedure and date(s) (History of knee surgery) Allergies: Allergies Allergy/AdvReac Type Severity Reaction Status Date / Time lisinopril AdvReac Intermediate Frequent Verified 03/19/25 10:01 stool Review of Systems Sugical H&P ROS: Negative: Constitution, Cardiovascular, Respiratory and Gastrointestinal Exam Surgical H&P Exam: Normal: Heart, Normal: Lungs, Normal: Extremities and Normal: Abdomen Plan Diagnosis/Plan: Unchanged I have reviewed the history and physical and performed a pertinent physical examination on my patient. No changes have occurred unless specified. Time Spent With Patient Time: Total time managing care of this patient today ____ minutes.
--- NOTE | 2025-04-01 12:54 | HO.OPN-COLON ---
Colonoscopy Operative Note Operative Note Date of Service: 04/01/25 Narrative: COLONOSCOPY TILL CECUM WITH BIOPSIES AND SNARE POLYPECTOMY Pre-op diagnosis: Colon cancer screening (First colon). Post-op diagnosis:? colon polyps, Diverticulosis, hemorrhoids Endoscopist:? Hortencia Bravo MD Anesthesia:?MAC Consent: Indications for the procedure and potential complications of bleeding, perforation, reaction to medications and missed diagnosis were discussed with the patient and informed consent was obtained. Instrument: Olympus CF H 190 L variable stiffness adult colonoscope Monitoring: Vital signs and clinical assessment, intermittent blood pressure monitoring, continuous EKG monitoring, Pulse oximetry and Carbon Dioxide monitoring were done throughout the procedure. Please see anesthesia flowsheet. Colon withdrawl time was 19 minutes. Procedure: The patient was placed in the left lateral decubitis position and pre-procedure medications were administered. After a digital rectal examination of the ano-rectum, the video colonoscope was inserted into the rectum and advanced through the colon to the cecum. The colonoscope was slowly withdrawn in a retrograde panoramic fashion and the colon mucosa was carefully examined including a retroflexed view of the rectum. Findings and interventions are described below. Procedure Difficulty: Colon was long and tortuous and there was some loop formation Findings: Terminal Ileum: Not evaluated Cecum: Normal Ascending Colon: Normal Transverse Colon: A 4-5 mm sessile polyp - removed with a cold snare Descending Colon: Normal Sigmoid Colon: Two 3-4 mm diminutive appearing polyps - removed with a cold biopsy. Moderate diverticulosis Rectum: Normal Ano-rectum: Small internal hemorrhoids Colon preparation: Good after some irrigation. [place] Bowel Preparation Scale Right colon; 2 Transverse colon: 2 Left colon; 2 (0 = Unprepared colon segment with mucosa not seen due to solid stool that cannot be cleared. 1 = Portion of mucosa of the colon segment seen, but other areas of the colon segment not well seen due to staining, residual stool and/or opaque liquid. 2 = Minor amount of residual staining, small fragments of stool and/or opaque liquid, but mucosa of colon segment seen well. 3 = Entire mucosa of colon segment seen well with no residual staining, small fragments of stool or opaque liquid) Impression and Post Procedure Diagnosis: Colonoscopy Findings: Three small polyps were removed Moderate diverticulosis seen in the sigmoid colon Small hemorrhoids on retroflexed exam. Plan: I will send a letter with biopsy results Repeat Colonoscopy in 3-5 years if polyps are adenomatous and 10 year if polyps are hyperplastic. Above findings were reviewed with the patient and relevant handouts were given and the discharge area.
[2025-04-01 12:57] VITALS: BP 117/67; PULSE 71; RESP 16; TEMP 36.1; O2SAT 99
[2025-04-01 13:00] VITALS: BP 113/70; PULSE 57; RESP 16; O2SAT 99
[2025-04-01 13:15] VITALS: BP 127/65; PULSE 54; RESP 16; TEMP 36.3; O2SAT 99
== END 2025-04-01 14:09 | disposition home or self-care (01) ==
PROVIDERS: PCP Physician Assistant; Visit Provider Internal Medicine Gastroenterology
PROC: 0DJD8ZZ Inspection of Lower Intestinal Tract, Via Natural or Artificial Opening Endoscopic (ICD-10-PCS; CPT 45378; principal; 2025-04-01 11:50)
DX: Z12.11 Encounter for screening for malignant neoplasm of colon (principal); K57.30 Diverticulosis of large intestine without perforation or abscess without bleeding; K64.8 Other hemorrhoids; D12.3 Benign neoplasm of transverse colon; K63.5 Polyp of colon
CPT/HCPCS: 45380; 45385; 88305; 88312; J2003; J2704

== ENCOUNTER → 2025-04-01 09:50 | Outpatient (BNV) | payer MEDICARE, BC, SELFPAY | PROVIDERS: PCP Physician Assistant; Visit Provider Internal Medicine Gastroenterology | DX: Z12.11 Encounter for screening for malignant neoplasm of colon (principal); D12.3 Benign neoplasm of transverse colon; D12.5 Benign neoplasm of sigmoid colon; K57.30 Diverticulosis of large intestine without perforation or abscess without bleeding; K64.8 Other hemorrhoids | CPT/HCPCS: 45380; 45385 ==

== ENCOUNTER 2025-04-02 12:40 | Outpatient (AMB) | payer MEDICARE, BC, SELFPAY ==
--- NOTE | 2025-04-02 12:42 | MHC.OFFVIS ---
Vital Signs 04/02/25 12:45 Height 5 ft 8 in Weight 188 lb BMI 28.6 BP 142/80 H Blood Pressure Location Lt brachial Position Sitting Pulse 82 Pulse Source Pulse Oximeter Pulse Oximetry (%) 97 Oxygen Delivery Method Room Air Intake Visit Reasons: F/U per MD Intake Note: Follow up Cognitive disorder, all tests negative looking for next step Auxiliary Equipment Tender Required: No Accompanied by: Spouse Allergies lisinopril Adverse Reaction (Intermediate, Verified 04/02/25 12:42) Frequent stool HPI Comments Details: 65y/o Left handed male comes for f/u of cognitive issues. Amyloid PET scan was negative CSF results pending EEG was normal Personality- he is calmer and not motivated No compulsive behavior No known h/o head injury He played football in High school and had some minor head injuries No tremors His voice is softer , quieter. 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 According to his she noticed some cognitive issues for past 9 mths. He was getting lost in parking lot , difficulty placing take out order , trouble reading etc, misplaces things around the house, forgets conversations etc. No mood disorder. He denies any sleep issues. No known head injury No fh/o dementia No h/o excessive alcohol intake No h/o Lyme [facility] Medical History (Updated 04/02/25 @ 13:01 by Taryn Welch MD) Dementia Cognitive disorder Surgical History History of surgery of head H/O knee surgery Family History Father Prostate cancer Social History Housing: House Are you a primary patient care technician instructor to a significant other at home: No Do you presently have visiting nurse or other home services: No Alcohol intake: current Alcohol intake frequency: holidays/special occasions only Alcohol type: beer Patient Tobacco Use Status: Never used Tobacco e-Cigarette/Vaping Use: Never Used Second Hand Smoke Exposure: No service: No Current occupational status: employed 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 Cognitive needs: No Hearing needs: No Vision needs: No Review of Systems Neuro Reports confusion Psych Reports confusion Physical Exam Vital Signs: Last Vital Signs Pulse 82 04/02/25 12:45 BP 142/80 H 04/02/25 12:45 Pulse Ox 97 04/02/25 12:45 Oxygen Delivery Method Room Air 04/02/25 12:45 BMI result Body Mass Index 28.6 Const General: cooperative, healthy appearing, comfortable, no acute distress and confusion Nutritional Appearance: average body habitus Orientation/consciousness: oriented to person, oriented to place, oriented to time and confusion Eyes Pupils: Equal, round and reactive pupils present Neuro Other: Decreased blink and facial expression Hypophonia Mild bradykinesias Increased tone right UE FFM mild slowing gait- decreased arm swing on the right General: oriented to person, oriented to place, oriented to time and confusion Cranial nerves: Yes Equal, round and reactive pupils present, Yes Bilaterally intact EOM present, Yes Nystagmus not present, Yes Normal facial strength present, Yes Midline tongue present, Yes Symmetric palate elevation present and Yes Ability to bilaterally elevate shoulders present Cognition (Neuro): abnormal cognition Gait exam (Neuro): Normal gait present Motor exam (neuro): 5/5 motor strength present throughout Coordination: emetea-fu-prpd test normal Orientation What is the (year) (season) (date) (day) (month)?: year, season, date, day and month Where are we (state) (county) (town or city) (hospital) (floor)?: state, county, town or city, hospital/clinic and floor Registration Name of 3 unrelated objects clearly and slowly, then ask patient to repeat all 3 of them. (1st repeat determines score. Make sure they can repeat all three): object 1, object 2 and object 3 Attention & Calculation (CHOOSE ONE) Spell WORLD backwards (DLROW): 1 letter Recall Ask patient to repeat the 3 items from question #3.: object 1 and object 3 Language Show patient a wristwatch & ask what it is. Repeat for pencil.: watch and pencil Ask the patient to repeat the phrase 'No ifs, ands, or buts' after you.: correct Ask the patient to 'take a piece of paper with their right hand' 'fold paper in half' 'place paper on floor': take paper in right hand Print the sentence 'CLOSE YOUR EYES' on a piece. If patient actually closes eyes then score.: followed written direction Give patient a blank piece of paper & ask to write a sentence. Score if it contains a noun & verb.: sentence contains subject and verb Ask patient to copy figure of intersecting pentagons exactly. Score if all 10 angles & 2 intersects are included.: all 10 angles present & 2 are intersected Score Score: 23 Assessment & Plan Assessment & Plan (1) Dementia: Comment: Negative PET Amyloid , ? FTD DLBD Code(s): F03.90 - Unspecified dementia, unspecified severity, without behavioral disturbance, psychotic disturbance, mood disturbance, and anxiety Category: Medical (2) Cognitive disorder: Comment: rapid progression , dementia R/o atypical etiologies Code(s): F09 - Unspecified mental disorder due to known physiological condition Category: Medical Plan waiting for CSF results Increase donepezil 10 mg qd start memantine 7 mg qd and titrate to 28 mg qd Neuropsych testing LORENE scan for parkinsonism will consider trialing patient on sinemet Orders: Orders DaTscan Today F03.90 - Unspecified dementia, unspecified severity, without behavioral disturbance, psychotic disturbance, mood disturbance, and anxiety, G20.C - Parkinsonism, unspecified Referrals Speech and Hearing Referral F03.90 - Unspecified dementia, unspecified severity, without behavioral disturbance, psychotic disturbance, mood disturbance, and anxiety Medications: New memantine 7 mg PO DAILY 30 ea 0RF memantine after 30 day course of 7 mg 14 mg PO DAILY 30 ea 0RF memantine after 30 day course of 14 mg 21 mg PO DAILY 30 ea 0RF memantine after 30 day course of 21mg 28 mg PO DAILY 30 ea 6RF Changed From donepezil 5 mg PO BEDTIME 30 days 30 tabs 1RF R41.82 - Altered mental status, unspecified To donepezil 10 mg PO BEDTIME 90 tabs 6RF 30 days R41.82 - Altered mental status, unspecified Coding Level of Care Code Est Pt Level 4 (87476) Add On Problem Visit Only Diagnoses Dementia F03.90 Cognitive disorder F09
[2025-04-02 12:45] VITALS: BP 142/80; PULSE 82; O2SAT 97; BMI 28.6
--- OUTSIDE RECORDS SUMMARY | 2025-04-02 16:27 | XMS_ITS | Patient Health Record ---
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 Name Role Phone Tahmina Streeter Unavailable [phone] Allergies No Known Allergies Reason For Referral [...] 01/17/2025 Encounters Encounter [facility] Date [facility] [address] 10/11/2024 Tahmina Perica Tinea unguium B35.1 ; Tinea pedis of both feet B35.3 ; Pain in right toe(s) M79.674 and Pain in left toe(s) M79.675 [facility] [place] [address] 01/17/2025 Tahmina Ferdinand Pain in right toe(s) M79.674 ; Onychomycosis B35.1 and Pain in left toe(s) M79.675 [facility] [address] [address] 11/05/2024 Tahmina Perica Tinea pedis of both feet B35.[address] [facility] [address] 12/26/2024 Tahmina Perica [facility] [address] 02/06/2025 Tahmina Perica [facility] [address] 12/26/2024 Tahmina Westona Assessments Encounter Date Diagnosis (ICD Code) Assessment Notes Treatment Notes Treatment Clinical Notes Section Notes 10/11/2024 Tinea unguium (ICD-10 - B35.1) 10/11/2024 Tinea pedis of both feet (ICD-10 - B35.3) 11/05/2024 Tinea pedis of both feet (ICD-10 - B35.3) 01/17/2025 Pain in right toe(s) (ICD-10 - M79.674) 01/17/2025 Onychomycosis (ICD-10 - B35.1) 10/11/2024 Pain in right toe(s) (ICD-10 - M79.674) 01/17/2025 Pain in left toe(s) (ICD-10 - M79.675) 10/11/2024 Pain in left toe(s) (ICD-10 - M79.675) Plan Of Treatment Next Appt Details Provider Name:Tahmina romero, 04/25/2025 03:15:00 PM, [facility] [address], [place], [address], Insurance Providers Payer Name Payer Address Payer Phone Subscriber Number Group Number Insured Name Patient Relationship to Insured Coverage Start Date Coverage End Date [facility] [employer] [address] [place] [address] [phone] [id number] Bob Connell Self - patient is the insured Medical (General) History Medical History History ICD Code High Blood Pressure Surgical History Surgery Date(Month/Year) knee surgery 09/25/1977 knee surgery 09/25/1978 cartilage removal 09/25/1977 cartilage removal 09/25/1978 tooth removed
== END 2025-04-02 15:00 | disposition home or self-care (01) ==
LOC: HO.HSMS 12:41
PROVIDERS: PCP Physician Assistant; Visit Provider Psychiatry & Neurology Neurology
DX: F03.90 Unspecified dementia, unspecified severity, without behavioral disturbance, psychotic disturbance, mood disturbance, and anxiety (principal); R41.89 Other symptoms and signs involving cognitive functions and awareness
CPT/HCPCS: 99214; G2211

== ENCOUNTER → 2025-04-02 12:40 | Outpatient (BNVA) | payer MEDICARE, BC, SELFPAY | PROVIDERS: PCP Physician Assistant; Visit Provider Psychiatry & Neurology Neurology | DX: F03.90 Unspecified dementia, unspecified severity, without behavioral disturbance, psychotic disturbance, mood disturbance, and anxiety (principal); F09 Unspecified mental disorder due to known physiological condition | CPT/HCPCS: 99212 ==